=== PATIENT | male | born 1970 | race Caucasian/White ===

== ENCOUNTER 2018-11-28 13:34 | Inpatient (IN) | payer OTHER ==
[~2018-11-28] VITALS: Ht 175.3 cm; Wt 114.9 kg
[2018-11-28] MEDS ORDERED: ACETAMINOPHEN 500 MG TAB PO STA (13:51)
[2018-11-28] MEDS ORDERED: ALBUTEROL/IPRATROPIUM (NEB) 3 ML AMP HHN STA (13:51)
[2018-11-28] MEDS ORDERED: IBUPROFEN 600 MG TAB PO STA (13:51)
--- NOTE | 2018-11-28 14:06 | ERD ---
ER Documentation Chief Complaint Chief Complaint BIB [facility] FOR EVAL OF GENERALIZED BODYACHE, FEVER. HPI This is a 48-year-old male who went to the emergency room yesterday for a rash. He was given a prescription of cimetidine as well as Benadryl. He states he took this just prior to arrival. Shortly after he indicated he became yaron phoretic and had a tactile fever with shaking chills. Over the past several days he has had a nonproductive cough but today it became productive. He denies tobacco use. He had generalized myalgias. He felt nauseous but did not experience any emesis. He denied any abdominal pain. He said no recent travel or prolonged immobilization. No recent sick contacts . The patient indicates he currently lives in a sober living facility. He indicates that he had a history of alcohol abuse. He has not used any alcohol for over 4 months. He denies any hemoptysis hematemesis or melanotic stool ROS All systems reviewed and are negative except as per history of present illness. Medications Home Meds Reported Medications Furosemide* (Furosemide*) 40 Mg Tablet, 40 MG PO DAILY, TAB 11/28/18 Potassium Chloride* (K-Dur*) 10 Meq Tab.prt.sr, 20 MEQ PO DAILY, TAB 11/28/18 Folic Acid* (Folic Acid*) 1 Mg Tablet, 1 MG PO DAILY, TAB 11/28/18 Famotidine* (Famotidine*) 20 Mg Tablet, 20 MG PO BID, #60 TAB 11/28/18 Diphenhydramine Hcl (Banophen) 25 Mg Capsule, 25 MG PO Q4H, CAP 11/28/18 Allergies Allergies: Coded Allergies: Penicillins (Verified Allergy, Intermediate, RASH, 11/28/18) Uncoded Allergies: PENICILLIN (Allergy, Unknown, 11/28/18) Physical Exam Vitals Vital Signs Date Temp Pulse Resp B/P (MAP) Pulse Ox O2 O2 Flow FiO2 Time Delivery Rate 11/28/18 120 32 99/47 (64) 98 Nasal 18:45 Cannula 11/28/18 118 28 91/44 (60) 100 Nasal 18:30 Cannula 11/28/18 99.1 18:22 11/28/18 116 24 97/45 (62) 98 Nasal 18:15 Cannula 11/28/18 118 19 98 Nasal 2.0 18:07 Cannula 11/28/18 2.0 18:07 5/2/19 99.9 119 30 100/44 99 Nasal 2.0 18:00 (62) Cannula 11/28/18 100.1 131 33 93/46 (62) 98 Nasal 2.0 17:45 Cannula 11/28/18 100.2 132 25 106/44 98 Nasal 16:45 (64) Cannula 11/28/18 102.1 123 27 104/55 97 Nasal 15:45 (71) Cannula 11/28/18 39.2 14:46 11/28/18 140 33 116/50 97 Nasal 14:30 (72) Cannula 11/28/18 102.5 133 20 143/65 99 13:49 (91) Physical Exam Constitutional:Well-developed. Well-nourished. HEENT:Normocephalic. Atraumatic.Pupils were equal round reactive to light. Dry mucous membranes.No tonsillar exudates. Neck: No nuchal rigidity. No lymphadenopathy. No posterior cervical spine tenderness or step-offs. Respiratory: Not using accessory muscles of respiration.Lungs were clear to auscultation bilaterally. No rhonchi. No rales. Bilateral wheezing Cardiovascular: Regular rate regular rhythm.No murmurs. No rubs were appreciated.S1, S2 normal. Distal pulses are palpable 2+ bilaterally. GI: Abdomen was soft. Nontender. Non Distended. No pulsatile abdominal masses or bruits. No rebound. No guarding. Bowel sounds were present and normal. Muscle skeletal: Full range of motion of both the upper and lower extremities bilaterally.Normal muscle tone.No assymetrical calf tenderness or swelling. Skin: Skin warm to the touch with no petechia, no purpura. No lesions on the palms or the soles of the feet. No maculopapular rash. Urticaria involving the chest back and upper extremities and no involvement of the face NEURO: Patient was alert, awake, orientated x3.No facial droop. Gait observed and normal with no ataxia.Speech had regular rate and rhythm. No focal neurological deficits. Result Diagram: 11/28/18 1400 11/28/18 1400 Results 24 hrs Laboratory Tests Test 11/28/18 14:00 11/28/18 14:08 11/28/18 17:45 11/28/18 17:55 White Blood Count 10.6 10^3/ul Red Blood Count 3.20 10^6/ul Hemoglobin 9.3 g/dl Hematocrit 29.1 % Mean Corpuscular 90.9 fl Volume Mean Corpuscular 29.1 pg Hemoglobin Mean Corpuscular 32.0 g/dl Hemoglobin Concent Red Cell 16.6 % Distribution Width Platelet Count 204 10^3/UL Mean Platelet 12.0 fl Volume Immature 0.400 % Granulocytes % Neutrophils % 77.7 % Lymphocytes % 7.2 % Monocytes % 4.1 % Eosinophils % 10.1 % Basophils % 0.5 % Nucleated Red Blood 0.0 /100WBC Cells % Immature 0.040 10^3/ul Granulocytes # Neutrophils # 8.3 10^3/ul Lymphocytes # 0.8 10^3/ul Monocytes # 0.4 10^3/ul Eosinophils # 1.1 10^3/ul Basophils # 0.1 10^3/ul Nucleated Red Blood 0.0 10^3/ul Cells # Prothrombin Time 16.6 Sec Prothrombin Time 1.3 Ratio INR International 1.33 Normalized Ratio Activated 37.1 Sec Partial Thromboplas t Time Sodium Level 138 mmol/L Potassium Level 4.7 mmol/L Chloride Level 106 mmol/L Carbon Dioxide 22 mmol/L Level Anion Gap 10 Blood Urea Nitrogen 10 mg/dl Creatinine 0.67 mg/dl Est Glomerular > 60 mL/min Filtrat Rate mL/min Glucose Level 114 mg/dl Calcium Level 8.9 mg/dl Total Bilirubin 1.5 mg/dl Direct Bilirubin 0.00 mg/dl Indirect Bilirubin 1.5 mg/dl Aspartate Amino 68 IU/L Transf (AST/SGOT) Alanine 13 IU/L Aminotransferase (A LT/SGPT) Alkaline 236 IU/L Phosphatase Creatine Kinase 82 IU/L Creatine Kinase 0.3 Index Creatinine Kinase < 0.22 ng/ml MB (Mass) Troponin I < 0.012 ng/ml B-Type Natriuretic 107 PG/ML Peptide Total Protein 7.9 g/dl Albumin 3.4 g/dl Globulin 4.50 g/dl Albumin/Globulin 0.75 Ratio POC Venous Lactate 2.9 mmol/L Lactic Acid Level 2.2 mmol/L Urine Color DICKSON Urine Clarity SLIGHTLY CLOUDY Urine pH 5.0 Urine Specific 1.025 [place] Urine Ketones TRACE mg/dL Urine Nitrite NEGATIVE mg/dL Urine Bilirubin 1+ mg/dL Urine Urobilinogen 1+ mg/dL Urine Leukocyte NEGATIVE Alisa/ul Esterase Urine Microscopic 9 /HPF RBC Urine Microscopic 2 /HPF WBC Urine Mucus FEW /HPF Urine Hemoglobin 2+ mg/dL Urine Glucose NEGATIVE mg/dL Urine Total Protein 1+ mg/dl Current Medications Medications Dose Sig/Carlos Start Time Status Last (Trade) Ordered Route PRN Stop Time Admin Dose Reason Admin 1,000 mg ONCE STAT 11/28/18 DC Acetaminophen PO 13:51 11/28/18 (Tylenol 13:57 Tab) Ibuprofen 800 mg ONCE STAT 11/28/18 DC 11/28/18 (Motrin) PO 13:51 11/28/18 14:46 13:57 Albuterol/ 3 ml ONCE STAT 11/28/18 DC 11/28/18 Ipratropium HHN 13:51 11/28/18 13:51 (Duoneb) 13:57 Sodium 1,920 ml BOLUS OVER 2 11/28/18 DC Chloride HOURS STAT 14:08 11/28/18 (NS) IV* 14:13 Cefepime HCl 50 ml @ ONCE STAT 11/28/18 DC 11/28/18 100 mls/hr IVPB 14:08 11/28/18 14:31 14:37 Vancomycin 250 ml @ ONCE ONCE 11/28/18 DC 11/28/18 HCl 125 mls/hr IVPB 14:30 11/28/18 15:38 16:29 Sodium 3,600 ml BOLUS OVER 2 11/28/18 DC 11/28/18 Chloride HOURS STAT 14:09 11/28/18 14:23 (NS) IV* 14:11 Ondansetron 4 mg ER BRIDGE 11/28/18 HCl (Zofran PRN IV 15:00 11/29/18 Inj) NAUSEA/VOMITI 14:59 NG 650 mg ER BRIDGE 11/28/18 Acetaminophen PRN PO 15:00 11/29/18 (Tylenol .MILD PAIN 14:59 Tab) 1-3 OR TEMP 50 mg ONCE STAT 11/28/18 DC 11/28/18 Diphenhydrami IV 15:03 11/28/18 16:13 ne HCl 15:05 (Benadryl) Epinephrine 0.5 mg ONCE STAT 11/28/18 DC 11/28/18 IM 15:03 11/28/18 16:13 (EPINEPHrine) 15:05 Famotidine 20 mg ONCE STAT 11/28/18 DC 11/28/18 (Pepcid Iv) IV 15:03 11/28/18 16:13 15:05 125 mg ONCE STAT 11/28/18 DC 11/28/18 Methylprednis IV 15:03 11/28/18 18:08 olone Sodium 15:05 Succinate (Solu-Medrol) IV Flush 3 ml PER 11/28/18 (NS 3 ml) PROTOCOL IV 16:30 650 mg Q6H PRN 11/28/18 Acetaminophen MT .PAIN 1-3 16:30 (Tylenol OR TEMP Supp) Oxycodone/ 1 tab Q6H PRN 11/28/18 Acetaminophen PO .MOD PAIN 16:30 (Percocet 4-6 (5/ 325)) Enoxaparin 30 mg DAILY SC 11/29/18 Sodium 09:00 (Lovenox) Ceftriaxone 50 ml @ Q24H IVPB 11/28/18 11/28/18 Sodium 100 mls/hr 17:00 18:15 500 mg ONCE ONCE 11/28/18 DC 11/28/18 Azithromycin PO 17:00 11/28/18 18:15 (Zithromax) 17:01 250 mg DAILY PO 11/29/18 Azithromycin 09:00 (Zithromax) 250 ml @ ONCE STAT 11/28/18 11/28/18 Norepinephrin 7.5 mls/hr IV 19:54 11/30/18 20:03 e 05:13 Procedures/MDM This is a 48-year-old male that presented to the emergency department with signs of an upper respiratory infection. The patient did meet Sirs criteria. The patient's lactic acid was elevated. Therefore the patient was treated for sepsis. Patient's infectious symptoms have not stabilized and the patient is at risk of rapid decompensation. The patient will be admitted for careful hydratio n, antibiotic therapy, and infectious source control. Severe Sepsis Assessment: Infectious Source: Initially the patient was treated for sepsis of unclear etiology. End organ damage indicated by: Lactate > 2.0 mmol/L Severe Sepsis Managment: Blood Cultures X 2 before broad spectrum antibiotics initiated within 3 hours of recognition. 30 ml/kg NS bolus Completed Initial Lactate: 2.9 Repeat Lactate pending. Please note that the 2 hours had not initially been obtained as when I placed the order set I accidentally only ordered for the 4-hour lactic. Therefore I had requested a draw roughly 3 hours after the initial lactic when I went to review the patient's chart and saw that the lactic 2 hours post initial POC had not been obtained. 12 Lead EKG tracing ordered and reviewed by myself showed: Sinus tachycardia 150 the patient's tachycardia and the patients tachycardia im proved after receiving antipyretics and IV fluids bpm and antipyretic MT interval normal. QRS duration normal. No ST segment elevation No ST segment depression. No changes consistent with acute ischemia. I considered further perfusion assessment with CVP measurement, SCVO2, bedside ultrasound volume assessment, passive leg raise, trial of further fluid bolus. And preceded with IV fluids. Chest radiograph indicated that there was a right lower lobe infiltrate that could be the source of the patient's sepsis. The patient also had an urticarial rash. The patient had received IV Benadryl Pepcid and epinephrine with improvement but not complete resolution of the urticarial rash. The patient indicated that rash is what prompted him to go to the emergency department yesterday at another facility when he was given Benadryl. Indicates he is not recently been on antibiotics. He does state that he has a history of cirrhosis and denies any history of alcohol abuse. The case he is awaiting to see a specialist. He states he has no known history of hepatitis but is currently completing hep A vaccinations. Critical Care: Time: 120 minutes Treatments/Evaluations: Close monitoring and treatment of unstable vital signs, cardiorespiratory, and neurologic status, while maintaining tight balance of fluid, respiratory, and cardiac interventions. Time does not include performing any of the above billable procedures. Nursing staff had approached me and indicated patient continued to remain hypotensive. Therefore discussed with the patient at this time the need for central line. The patient provided a written consent for central line placement. The patient was critically ill and required central venous access. The patient consented and after was prepped and draped in a sterile fashion. Time out performed and the left internal jugular vein was cannulated using the Seldinger technique after anesthesia administered with 1% lidocaine locally. A triple lumen catheter used. The guidewire was easily thread into the vessel. The guidewire was retrieved, removed and disposed of. All three ports gonzalo back venous blood and flushed easily. The line was secured in place with 2 simple interrupted sutures and a biostat was applied over the area in inoculation. The patient tolerated the procedure well with no complications. These also note that I initially attempted placement into the left femoral vein. However the guidewire had difficulty passing which is why I then went to the left internal jugular. ED Ultrasound: Central line placed by me using concurrent ultrasound guidance. Real time image archived in the medical record confirms vascular anatomy. The patient will be upgraded to the intensive care unit and the patient was started on pressors. The patient's bilirubin was also elevated however I did not feel the lactic acid was as a result of her cirrhosis but rather a result of sepsis from an infectious process being pneumonia. The patient was febrile with an elevated lactate. Repeat lactic acid had slightly improved to 2.2. Departure Diagnosis: Primary Impression: Sepsis Sepsis type: sepsis due to unspecified organism Qualified Codes: A41.9 - Sepsis, unspecified organism Additional Impressions: Pneumonia Pneumonia type: due to unspecified organism Laterality: right Lung location: lower lobe of lung Qualified Codes: J18.1 - Lobar pneumonia, unspecified organism Urticaria Condition: Serious ARACELI LUNA MD November 28, 2018 14:06
[2018-11-28] MEDS ORDERED: SODIUM CHLORIDE 0.9% 1L BAG IV* STA ×2 (14:08→14:09)
[2018-11-28] MEDS ORDERED: CEFEPIME 2GM/50 ML (PMX) 50 ML IVPB STA (14:08)
[2018-11-28] MEDS ORDERED: VANCOMYCIN 1 GM (PMX) 250 ML IVPB ONE (14:30)
[2018-11-28] MEDS ORDERED: DIPH25CA42 PO (14:46)
[2018-11-28] MEDS ORDERED: FAMO20TA18 PO (14:46)
[2018-11-28] MEDS ORDERED: FOLI-49 PO (14:47)
[2018-11-28] MEDS ORDERED: POTA10TA37 PO (14:49)
[2018-11-28] MEDS ORDERED: FURO40TA4 PO (14:50)
[2018-11-28] MEDS ORDERED: ACETAMINOPHEN 325 MG TAB PO PRN (15:00)
[2018-11-28] MEDS ORDERED: ONDANSETRON 4 MG INJ IV PRN (15:00)
[2018-11-28] MEDS ORDERED: FAMOTIDINE 20 MG INJ IV STA (15:03)
[2018-11-28] MEDS ORDERED: METHYLPREDNISOLONE 125 MG INJ IV STA (15:03)
[2018-11-28] MEDS ORDERED: EPINEPHrine 1 MG INJ IM STA (15:03)
[2018-11-28] MEDS ORDERED: DIPHENHYDRAMINE 50 MG INJ IV STA (15:03)
[2018-11-28] MEDS ORDERED: NACL 0.9% 3 ML SYG IV SCH (16:30)
[2018-11-28] MEDS ORDERED: OXYCODONE/ACETAMINOPHEN (5/325) TAB PO PRN (16:30)
[2018-11-28] MEDS ORDERED: ACETAMINOPHEN 650 MG SUPP PR PRN (16:30)
--- NOTE | 2018-11-28 16:47 | HP ---
Date/Time of Note Date/Time of Note DATE: 11/28/18 TIME: 16:30 Assessment/Plan VTE Prophylaxis SCD applied (from Nsg): Yes Pharmacological prophylaxis: heparin Lines/Catheters IV Catheter Type (from Nrsg): Saline Lock Assessment/Plan Hospital Course EXAM: Appears well No distress Diffuse erythematous rash covering trunk and back, mildly raised, very warm to touch Tachy, regular, flat neck veins Lungs clear Abdomen obese, soft, nt Legs with erythema and mild pitting edema b/l A/P: 48 yo male with h/o alcoholic liver disease who presents with likely drug eruption from lasix as well as fever/SIRS with XR showing possible pneumonia Rash: - Temporally this seems related to use of lasix. Perhpas this is hives. However prescence of fever with eosinophelia raises concern for DRESS syndrome. It is reassuring there is no mucosal involvement - s/p steroids and antihistamines in the ED - Supportive care for now and monitor SIRS with XR showing pneumonia: - Will give ceftriaxone/azithro for CAP Reported h/o alcoholic liver disease: - US of liver, trend LFTs Anemia: - Check iron stores Result Diagram: 11/28/18 1400 11/28/18 1400 Results 24hrs Laboratory Tests Test 11/28/18 14:00 11/28/18 14:08 White Blood Count 10.6 Red Blood Count 3.20 L Hemoglobin 9.3 L Hematocrit 29.1 L Mean Corpuscular Volume 90.9 Mean Corpuscular Hemoglobin 29.1 Mean Corpuscular Hemoglobin Concent 32.0 Red Cell Distribution Width 16.6 H Platelet Count 204 Mean Platelet Volume 12.0 H Immature Granulocytes % 0.400 Neutrophils % 77.7 H Lymphocytes % 7.2 L Monocytes % 4.1 Eosinophils % 10.1 H Basophils % 0.5 Nucleated Red Blood Cells % 0.0 Immature Granulocytes # 0.040 H Neutrophils # 8.3 H Lymphocytes # 0.8 Monocytes # 0.4 Eosinophils # 1.1 H Basophils # 0.1 Nucleated Red Blood Cells # 0.0 Prothrombin Time 16.6 H Prothrombin Time Ratio 1.3 INR International Normalized Ratio 1.33 Activated Partial Thromboplast Time 37.1 H Sodium Level 138 Potassium Level 4.7 Chloride Level 106 Carbon Dioxide Level 22 Anion Gap 10 Blood Urea Nitrogen 10 Creatinine 0.67 Est Glomerular Filtrat Rate mL/min > 60 Glucose Level 114 Calcium Level 8.9 Total Bilirubin 1.5 H Direct Bilirubin 0.00 Indirect Bilirubin 1.5 H Aspartate Amino Transf (AST/SGOT) 68 H Alanine Aminotransferase (ALT/SGPT) 13 Alkaline Phosphatase 236 H Creatine Kinase 82 Creatine Kinase Index 0.3 Creatinine Kinase MB (Mass) < 0.22 Troponin I < 0.012 B-Type Natriuretic Peptide 107 Total Protein 7.9 Albumin 3.4 Globulin 4.50 H Albumin/Globulin Ratio 0.75 POC Venous Lactate 2.9 *H HPI/ROS Admit Date/Time Admit Date/Time Hx of Present Illness 48 yo male with reported h/o alcoholic liver disease presents with rash, fever, malaise States he was diagnosed with liver problem a couple months ago at [facility], consequence of alcohol use. He was given lasix at that time without any adverse reaction. He took it for a few weeks and then had been off of it until refilling the script a couple days ago. Took lasix again and then developed full body skin rash which has persisted. Then today, he was at work and began feeling feverish with systemic malaise. Body shaking. Cough. Came to ED for evaluation. Here found to have diffuse skin rash, fever, and XR consistent with pneumoina. Given fluids, abx, steroids, antihistamines, tylenol. Says he feels "a thousand percent better" ROS Constitutional: no complaints, improved Eyes: no complaints ENT: no complaints Respiratory: no complaints Cardiovascular: no complaints Gastrointestinal: no complaints Genitourinary: no complaints Musculoskeletal: no complaints Skin: no complaints Neurologic: no complaints Endocrine: no complaints Lymphatic: no complaints Psychological: no complaints, nl mood/affect Immunologic: no complaints PMH/Family/Social Past Medical History liver disease Medications Current Medications Ondansetron HCl (Zofran Inj) 4 mg ER BRIDGE PRN IV NAUSEA/VOMITING; Start 11/28/18 at 15:00; Stop 11/29/18 at 14:59 Acetaminophen (Tylenol Tab) 650 mg ER BRIDGE PRN PO .MILD PAIN 1-3 OR TEMP; Start 11/28/18 at 15:00; Stop 11/29/18 at 14:59 Uncoded Allergies: PENICILLIN (Allergy, Unknown, 11/28/18) Past Surgical History Past Surgical Hx: no surgical history Family History Significant Family History: no pertinent family hx Social History Alcohol Use: sober Smoking Status: Never smoker Drug Use: none Exam/Review of Systems Vital Signs Vitals Vital Signs Date Temp Pulse Resp B/P (MAP) Pulse Ox O2 O2 Flow FiO2 Time Delivery Rate 11/28/18 39.2 14:46 11/28/18 133 20 143/65 99 13:49 (91) YELITZA DECKER MD November 28, 2018 16:41
[2018-11-28] MEDS ORDERED: AZITHROMYCIN 500 MG TAB PO ONE (17:00)
[2018-11-28] MEDS: CEFTRIAXONE 1 GM/50 ML (PMX) 50 ML IVPB SCH (18:15)
[2018-11-28] MEDS ORDERED: NORepinephrine 8MG/250 ML (PMX 250 ML IV STA (19:54)
[2018-11-29] VITALS (67 sets, daily range): BP systolic 68–169; BP diastolic 43–94; PULSE 94–123; RESP 10–37; Ht 175.3 cm; Wt 114.9 kg
[2018-11-29] MEDS ORDERED: VANCOMYCIN IV PER PHARMACY XX SCH (03:30)
[2018-11-29] MEDS ORDERED: VANCOMYCIN HCL 1.75 GM in SOD CHLORIDE 0.9% 500 ML IVPB ONE (04:00)
[2018-11-29] MEDS: AZITHROMYCIN 250 MG TAB PO SCH (08:12)
[2018-11-29] MEDS: ENOXAPARIN 30 MG/0.3 ML SYG SC SCH (08:13)
[2018-11-29] MEDS: GUAIFENESIN/DM 5ML CUP PO PRN (09:32)
[2018-11-29] MEDS ORDERED: CLOTRIMAZOLE 1% 30 ML TOPICAL SOLN TOP ONE (10:00)
[2018-11-29] MEDS ORDERED: CLOTRIMAZOLE 1% 30 GM CR TOP ONE (10:00)
--- NOTE | 2018-11-29 12:20 | RADRPT ---
Echocardiogram Report Patient Name: Sudheer SALVADOR ID: [id number] : 1970 (48y 4m)Study Date: 11/29/2018 7:37:11 AM Gender: MAccession #: [id number] Tech: Malinda Graves THERESA Location: 113 Ref.Physician: YELITZA DECKER Height(Cm): BSA: Weight(Kg): Quality: AdequateAccount #: Procedures: Echocardiographic Report: Transthoracic echocardiogram with complete 2D, M-Mode, and doppler examination. Indications: Abnormal EKG. Measurements: 2D/M Mode Doppler Measurement Value Normal Range Measurement Value Normal Range LVIDd 2D 5.8 [ 4.2 - 5.8 ] cm AV Mean Leoncio 1.5 [ 70.0 - 90.0 ] cm/sec LVIDs 2D 3.8 [ 2.5 - 4.0 ] cm AV Mean PG 10.0 [ 2.0 - 4.0 ] mmHg LVPWd 2D 1.0 [ 0.6 - 1.0 ] cm AV VTI 38.1 cm IVSd 2D 1.1 [ 0.6 - 1.0 ] cm LVOT Mean Leoncio 1.1 [ 60.0 - 80.0 ] cm/sec AoR Diam 2D 3.0 [ 2.6 - 3.4 ] cm LVOT Mean PG 5.0 [ 1.0 - 3.0 ] mmHg EDV 2D 170.0 [ 62.0 - 150.0 ] ml LVOT Peak Leoncio 1.5 [ 70.0 - 110.0 ] cm/sec ESV 2D 60.8 [ 21.0 - 61.0 ] ml LVOT Peak PG 8.0 [ 2.0 - 6.0 ] mmHg EF 2D 64.2 [ 52.0 - 72.0 ] percent LVOT VTI 31.1 [ 20.0 - 30.0 ] cm LA Dimen 2D 4.1 [ 3.0 - 4.0 ] cm MV E Peak Leoncio 1.4 [ 60.0 - 130.0 ] cm/sec MV A Peak Leoncio 1.7 [ 100.0 - 120.0 ] cm/sec MV E/A 0.8 [ 0.8 - 1.5 ] ratio MV Decel Time 130 [ 104 - 258 ] msec MV E/A 0.8 [ 0.8 - 1.5 ] ratio TR Peak Leoncio 2.5 [ 100.0 - 280.0 ] cm/sec TR Peak PG 25.0 mmHg RVSP 40.0 [ 10.0 - 36.0 ] mmHg RA Pressure 15.0 mmHg Findings: Left Ventricle: Lower limits of normal systolic function. Mild concentric left ventricular hypertrophy. Mild enlargement of left ventricle cavity. Ejection fraction is visually estimated at 50-55 %. Tissue Doppler/Mitral Doppler indices are consistent with impaired relaxation (Stage I diastolic dysfunction). Right Ventricle: Normal right ventricular size. Normal right ventricular systolic function. Left Atrium: There is mild enlargement of left atrium. Right Atrium: The right atrium is normal in size. Mitral Valve: Mitral valve leaflets appear mildly thickened. Mild mitral annular calcification. Mild mitral valve regurgitation. Aortic Valve: Aortic sclerosis without significant stenosis. Trace aortic valve regurgitation. Tricuspid Valve: Normal appearance of the tricuspid valve. Estimated peak PA systolic pressure 40 mmHg. There is mild tricuspid regurgitation. Pulmonic Valve: Pulmonic valve not well visualized. Pericardium: Normal pericardium with no significant pericardial effusion. Aorta: Normal aortic root. IVC: Dilated IVC without respiratory collapse consistent with elevated right atrial pressure. Conclusions: Lower limits of normal systolic function. Mild concentric left ventricular hypertrophy. Mild enlargement of left ventricle cavity. Ejection fraction is visually estimated at 50-55 %. Tissue Doppler/Mitral Doppler indices are consistent with impaired relaxation (Stage I diastolic dysfunction). Normal right ventricular size. Normal right ventricular systolic function. There is mild enlargement of left atrium. The right atrium is normal in size. Mild mitral valve regurgitation. Aortic sclerosis without significant stenosis. Trace aortic valve regurgitation. Estimated peak PA systolic pressure 40 mmHg. There is mild tricuspid regurgitation. Dilated IVC without respiratory collapse consistent with elevated right atrial pressure. Normal pericardium with no significant pericardial effusion. Electronically Signed By: Toby Swift 2018-11-29 12:20:17 PDT
[2018-11-29] MEDS: CEPASTAT LOZENGE MT PRN (13:36)
--- NOTE | 2018-11-29 14:02 | PN ---
Date/Time of Note Date/Time of Note DATE: 11/29/18 TIME: 13:59 Assessment/Plan VTE Prophylaxis SCD applied (from Nsg): Yes Pharmacological prophylaxis: heparin Lines/Catheters IV Catheter Type (from Nrsg): Mid Line Assessment/Plan Hospital Course EXAM: Appears well No distress Rash is resolving nicely Tachy, regular, flat neck veins Lungs clear Abdomen obese, soft, nt Legs with erythema and mild pitting edema b/l A/P: 48 yo male with h/o alcoholic liver disease who presents with likely drug eruption from lasix as well as fever/SIRS with XR showing possible pneumonia Rash: - Resolving nicely. Likely related to drug exposure prior to presentation - s/p steroids and antihistamines in the ED - Supportive care for now and monitor SIRS with XR showing pneumonia: - Continue ceftriaxone/azithro for CAP. Vancomycin was added overnight - Remains a bit tachycardic and borderline hypotensive. TTE with nomral LV function Reported h/o alcoholic liver disease: - US of liver without ascites, shows fatty infiltration Iron deficiency anemia: - Replete with IV iron - Will need non urgent GI evaluation Result Diagram: 11/29/18 0430 11/29/18 0430 Results 24hrs Laboratory Tests Test 11/28/18 14:00 11/28/18 14:08 11/28/18 17:45 11/28/18 17:55 White Blood Count 10.6 Red Blood Count 3.20 L Hemoglobin 9.3 L Hematocrit 29.1 L Mean Corpuscular 90.9 Volume Mean Corpuscular 29.1 Hemoglobin Mean Corpuscular 32.0 Hemoglobin Concent Red Cell 16.6 H Distribution Width Platelet Count 204 Mean Platelet 12.0 H Volume Immature 0.400 Granulocytes % Neutrophils % 77.7 H Lymphocytes % 7.2 L Monocytes % 4.1 Eosinophils % 10.1 H Basophils % 0.5 Nucleated Red 0.0 Blood Cells % Immature 0.040 H Granulocytes # Neutrophils # 8.3 H Lymphocytes # 0.8 Monocytes # 0.4 Eosinophils # 1.1 H Basophils # 0.1 Nucleated Red 0.0 Blood Cells # Prothrombin Time 16.6 H Prothrombin Time 1.3 Ratio INR International 1.33 Normalized Ratio Activated 37.[address] Time Sodium Level 138 Potassium Level 4.7 Chloride Level 106 Carbon Dioxide 22 Level Anion Gap 10 Blood Urea 10 Nitrogen Creatinine 0.67 Est Glomerular > 60 Filtrat Rate mL/min Glucose Level 114 Calcium Level 8.9 Total Bilirubin 1.5 H Direct Bilirubin 0.00 Indirect Bilirubin 1.5 H Aspartate Amino 68 H Transf (AST/SGOT) Alanine 13 Aminotransferase ( ALT/SGPT) Alkaline 236 H Phosphatase Creatine Kinase 82 Creatine Kinase 0.3 Index Creatinine Kinase < 0.22 MB (Mass) Troponin I < 0.012 B-Type Natriuretic 107 Peptide Total Protein 7.9 Albumin 3.4 Globulin 4.50 H Albumin/Globulin 0.75 Ratio POC Venous Lactate 2.9 *H Lactic Acid Level 2.2 *H Urine Color DICKSON Urine Clarity SLIGHTLY CLOUDY A Urine pH 5.0 Urine Specific 1.025 [place] Urine Ketones TRACE A Urine Nitrite NEGATIVE Urine Bilirubin 1+ H Urine Urobilinogen 1+ H Urine Leukocyte NEGATIVE Esterase Urine Microscopic 9 H RBC Urine Microscopic 2 WBC Urine Mucus FEW A Urine Hemoglobin 2+ H Urine Glucose NEGATIVE Urine Total 1+ H Protein Test 11/28/18 22:15 11/29/18 04:30 11/29/18 04:36 Lactic Acid Level 2.6 *H White Blood Count 12.5 H Red Blood Count 2.64 L Hemoglobin 7.7 L Hematocrit 24.2 L Mean Corpuscular 91.7 Volume Mean Corpuscular 29.2 Hemoglobin Mean Corpuscular 31.8 L Hemoglobin Concent Red Cell 16.6 H Distribution Width Platelet Count 122 #L Mean Platelet 11.3 H Volume Immature 3.400 H Granulocytes % Neutrophils % Segmented 71 Neutrophils % (Manual) Band Neutrophils % 26 H (Manual) Lymphocytes % Lymphocytes % 2 L (Manual) Monocytes % Monocytes % 1 (Manual) Eosinophils % Basophils % Nucleated Red 0.0 Blood Cells % Immature 0.430 H Granulocytes # Neutrophils # Neutrophils # 9.3 H (Manual) Band Neutrophils # 3.2 H Lymphocytes 0.2 L (Manual) Lymphocytes # Monocytes # Monocytes # 0.1 L (Manual) Eosinophils # Basophils # Nucleated Red Blood Cells # Platelet Estimate DECREASED Polychromasia 2+ Hypochromasia 1+ Poikilocytosis 1+ Ovalocytes 1+ Sodium Level 140 Potassium Level 4.1 Chloride Level 112 H Carbon Dioxide 21 Level Anion Gap 7 Blood Urea 13 Nitrogen Creatinine 0.78 Est Glomerular > 60 Filtrat Rate mL/min Glucose Level 227 #H Hemoglobin A1c 5.6 Calcium Level 7.8 L Total Bilirubin 0.9 Direct Bilirubin 0.00 Indirect Bilirubin 0.9 Aspartate Amino 44 Transf (AST/SGOT) Alanine 21 Aminotransferase ( ALT/SGPT) Alkaline 109 # Phosphatase Total Protein 5.8 #L Albumin 2.5 L Globulin 3.30 H Albumin/Globulin 0.75 Ratio Iron Level 14 L Total Iron Binding 369 Capacity Percent Iron 4 L Saturation Ferritin 21.9 Subjective 24 Hr Interval Summary Free Text/Dictation Rash is resolved Patient is feeling better Mild cough present Exam/Review of Systems Exam Vitals Vital Signs Date Temp Pulse Resp B/P (MAP) Pulse Ox O2 O2 Flow FiO2 Time Delivery Rate 11/29/18 119 08:00 11/29/18 24 98/56 (70) 94 Room Air 07:00 11/29/18 98.3 04:00 11/28/18 2.0 18:07 Intake and Output 11/28/18 11/28/18 11/29/18 1515:00 23:00 07:00 IntakeIntake Total 3900 ml 536.25 ml OutputOutput Total 720 ml BalanceBalance 3900 ml -183.75 ml Results Results 24hrs Laboratory Tests Test 11/28/18 14:00 11/28/18 14:08 11/28/18 17:45 11/28/18 17:55 White Blood Count 10.6 Red Blood Count 3.20 L Hemoglobin 9.3 L Hematocrit 29.1 L Mean Corpuscular 90.9 Volume Mean Corpuscular 29.1 Hemoglobin Mean Corpuscular 32.0 Hemoglobin Concent Red Cell 16.6 H Distribution Width Platelet Count 204 Mean Platelet 12.0 H Volume Immature 0.400 Granulocytes % Neutrophils % 77.7 H Lymphocytes % 7.2 L Monocytes % 4.1 Eosinophils % 10.1 H Basophils % 0.5 Nucleated Red 0.0 Blood Cells % Immature 0.040 H Granulocytes # Neutrophils # 8.3 H Lymphocytes # 0.8 Monocytes # 0.4 Eosinophils # 1.1 H Basophils # 0.1 Nucleated Red 0.0 Blood Cells # Prothrombin Time 16.6 H Prothrombin Time 1.3 Ratio INR International 1.33 Normalized Ratio Activated 37.[address] Time Sodium Level 138 Potassium Level 4.7 Chloride Level 106 Carbon Dioxide 22 Level Anion Gap 10 Blood Urea 10 Nitrogen Creatinine 0.67 Est Glomerular > 60 Filtrat Rate mL/min Glucose Level 114 Calcium Level 8.9 Total Bilirubin 1.5 H Direct Bilirubin 0.00 Indirect Bilirubin 1.5 H Aspartate Amino 68 H Transf (AST/SGOT) Alanine 13 Aminotransferase ( ALT/SGPT) Alkaline 236 H Phosphatase Creatine Kinase 82 Creatine Kinase 0.3 Index Creatinine Kinase < 0.22 MB (Mass) Troponin I < 0.012 B-Type Natriuretic 107 Peptide Total Protein 7.9 Albumin 3.4 Globulin 4.50 H Albumin/Globulin 0.75 Ratio POC Venous Lactate 2.9 *H Lactic Acid Level 2.2 *H Urine Color [place] Urine Clarity SLIGHTLY CLOUDY A Urine pH 5.0 Urine Specific 1.025 [place] Urine Ketones TRACE A Urine Nitrite NEGATIVE Urine Bilirubin 1+ H Urine Urobilinogen 1+ H Urine Leukocyte NEGATIVE Esterase Urine Microscopic 9 H RBC Urine Microscopic 2 WBC Urine Mucus FEW A Urine Hemoglobin 2+ H Urine Glucose NEGATIVE Urine Total 1+ H Protein Test 11/28/18 22:15 11/29/18 04:30 11/29/18 04:36 Lactic Acid Level 2.6 *H White Blood Count 12.5 H Red Blood Count 2.64 L Hemoglobin 7.7 L Hematocrit 24.2 L Mean Corpuscular 91.7 Volume Mean Corpuscular 29.2 Hemoglobin Mean Corpuscular 31.8 L Hemoglobin Concent Red Cell 16.6 H Distribution Width Platelet Count 122 #L Mean Platelet 11.3 H Volume Immature 3.400 H Granulocytes % Neutrophils % Segmented 71 Neutrophils % (Manual) Band Neutrophils % 26 H (Manual) Lymphocytes % Lymphocytes % 2 L (Manual) Monocytes % Monocytes % 1 (Manual) Eosinophils % Basophils % Nucleated Red 0.0 Blood Cells % Immature 0.430 H Granulocytes # Neutrophils # Neutrophils # 9.3 H (Manual) Band Neutrophils # 3.2 H Lymphocytes 0.2 L (Manual) Lymphocytes # Monocytes # Monocytes # 0.1 L (Manual) Eosinophils # Basophils # Nucleated Red Blood Cells # Platelet Estimate DECREASED Polychromasia 2+ Hypochromasia 1+ Poikilocytosis 1+ Ovalocytes 1+ Sodium Level 140 Potassium Level 4.1 Chloride Level 112 H Carbon Dioxide 21 Level Anion Gap 7 Blood Urea 13 Nitrogen Creatinine 0.78 Est Glomerular > 60 Filtrat Rate mL/min Glucose Level 227 #H Hemoglobin A1c 5.6 Calcium Level 7.8 L Total Bilirubin 0.9 Direct Bilirubin 0.00 Indirect Bilirubin 0.9 Aspartate Amino 44 Transf (AST/SGOT) Alanine 21 Aminotransferase ( ALT/SGPT) Alkaline 109 # Phosphatase Total Protein 5.8 #L Albumin 2.5 L Globulin 3.30 H Albumin/Globulin 0.75 Ratio Iron Level 14 L Total Iron Binding 369 Capacity Percent Iron 4 L Saturation Ferritin 21.9 Medications Medication Current Medications Ondansetron HCl (Zofran Inj) 4 mg ER BRIDGE PRN IV NAUSEA/VOMITING; Start 11/28/18 at 15:00; Stop 11/29/18 at 14:59 Acetaminophen (Tylenol Tab) 650 mg ER BRIDGE PRN PO .MILD PAIN 1-3 OR TEMP; Start 11/28/18 at 15:00; Stop 11/29/18 at 14:59 IV Flush (NS 3 ml) 3 ml PER PROTOCOL IV ; Start 11/28/18 at 16:30 Acetaminophen (Tylenol Supp) 650 mg Q6H PRN [place] .PAIN 1-3 OR TEMP; Start 11/28/18 at 16:30 Oxycodone/ Acetaminophen (Percocet (5/ 325)) 1 tab Q6H PRN PO .MOD PAIN 4-6; Start 11/28/18 at 16:30 Enoxaparin Sodium (Lovenox) 30 mg DAILY SC Last administered on 11/29/18at 08:13; Admin Dose 30 MG; Start 11/29/18 at 09:00 Ceftriaxone Sodium 50 ml @ 100 mls/hr Q24H IVPB Last administered on 11/28/18at 18:15; Admin Dose 100 MLS/HR; Start 11/28/18 at 17:00 Azithromycin (Zithromax) 250 mg DAILY PO Last administered on 11/29/18at 08:12; Admin Dose 250 MG; Start 11/29/18 at 09:00 Norepinephrine 250 ml @ 7.5 mls/hr ONCE STAT IV Last administered on 11/28/18at 20:03; Admin Dose 7.5 MLS/HR; Start 11/28/18 at 19:54; Stop 11/30/18 at 05:13 Vancomycin HCl (Vanco Iv Per Pharmacy) VANCOMYCIN PER PHARMACY PER PROTOCOL XX ; Start 11/29/18 at 03:30 Vancomycin HCl 2 gm/Sodium Chloride 500 ml @ 125 mls/hr Q12H IVPB ; Start 11/29/18 at 17:00 Guaifenesin/ Dextromethorphan (Robitussin Dm Liquid Cup) 5 ml Q4H PRN PO cough Last administered on 11/29/18at 09:32; Admin Dose 5 ML; Start 11/29/18 at 09:30 Phenol (Cepastat Lozenge) 1 lozenge Q1H PRN [place] cough Last administered on 11/29/18at 13:36; Admin Dose 1 LOZENGE; Start 11/29/18 at 09:30 Ferric Sodium Gluconate Complex 125 mg/Sodium Chloride 110 ml @ 110 mls/hr DAILY@1300 IVPB ; Start 11/29/18 at 15:30; Stop 12/03/18 at 13:59 YELITZA DECKER MD November 29, 2018 14:02
[2018-11-29] MEDS: SOD FERRIC GLUC COMPLX 125 MG in SOD CHLORIDE 0.9% 100 ML IVPB SCH (15:10)
[2018-11-29] MEDS: VANCOMYCIN HCL 2 GM in SOD CHLORIDE 0.9% 500 ML IVPB SCH (17:02)
[2018-11-29] MEDS: CEFTRIAXONE 1 GM/50 ML (PMX) 50 ML IVPB SCH (17:02)
[2018-11-30] VITALS (27 sets, daily range): BP systolic 97–138; BP diastolic 43–90; PULSE 96–121; RESP 18–35
[2018-11-30] MEDS: CEPASTAT LOZENGE MT PRN (00:37)
[2018-11-30] MEDS: GUAIFENESIN/DM 5ML CUP PO PRN ×4 (00:37→19:37)
[2018-11-30] MEDS: DIPHENHYDRAMINE 25 MG CAP PO PRN (01:13)
[2018-11-30] MEDS: VANCOMYCIN HCL 2 GM in SOD CHLORIDE 0.9% 500 ML IVPB SCH ×2 (04:29→18:43)
[2018-11-30] MEDS: AZITHROMYCIN 250 MG TAB PO SCH (08:12)
[2018-11-30] MEDS: ENOXAPARIN 30 MG/0.3 ML SYG SC SCH (09:07)
[2018-11-30] MEDS: SOD FERRIC GLUC COMPLX 125 MG in SOD CHLORIDE 0.9% 100 ML IVPB SCH (12:57)
[2018-11-30] MEDS: IBUPROFEN 600 MG TAB PO PRN (14:37)
--- NOTE | 2018-11-30 14:54 | PN ---
Date/Time of Note Date/Time of Note DATE: 11/30/18 TIME: 14:52 Assessment/Plan VTE Prophylaxis Risk score (from Ns)>0 risk: 5 SCD applied (from Nsg): Yes Pharmacological prophylaxis: heparin Lines/Catheters IV Catheter Type (from Nrsg): Central Line Central line still needed: Yes Urinary Cath still in place: No Assessment/Plan Hospital Course EXAM: Appears well No distress Rash is resolved Tachy, regular, flat neck veins Lungs clear Abdomen obese, soft, nt Legs with erythema and mild pitting edema b/l A/P: 48 yo male with h/o alcoholic liver disease who presents with likely drug eruption from lasix as well as probably sepsis with XR showing pneumonia Sepsis 2/2 pneumonia and GPC bacteremia - Continue ceftriaxone/azithro for CAP. Vancomycin for bacteremia with GPCs, await speciation - No evidence of vegetation on TTE Rash: - Resolved nicely. Likely related to drug exposure prior to presentation. Eosinphilia has resolved so DRESS unlikely - s/p steroids and antihistamines in the ED - Supportive care for now and monitor Reported h/o alcoholic liver disease: - US of liver without ascites, shows fatty infiltration Iron deficiency anemia: - Replete with IV iron - Will need non urgent GI evaluation Result Diagram: 11/30/18 0423 11/30/18 0423 Results 24hrs Laboratory Tests Test 11/30/18 04:23 White Blood Count 11.1 H Red Blood Count 2.44 L Hemoglobin 7.2 L Hematocrit 22.3 L Mean Corpuscular Volume 91.4 Mean Corpuscular Hemoglobin 29.5 Mean Corpuscular Hemoglobin Concent 32.3 Red Cell Distribution Width 16.6 H Platelet Count 115 L Mean Platelet Volume 11.7 H Immature Granulocytes % 1.900 H Neutrophils % 83.0 H Lymphocytes % 11.2 L Monocytes % 3.6 Eosinophils % 0.2 Basophils % 0.1 Nucleated Red Blood Cells % 0.0 Immature Granulocytes # 0.210 H Neutrophils # 9.2 H Lymphocytes # 1.2 Monocytes # 0.4 Eosinophils # 0.0 Basophils # 0.0 Nucleated Red Blood Cells # 0.0 Sodium Level 140 Potassium Level 4.3 Chloride Level 111 H Carbon Dioxide Level 24 Anion Gap 5 Blood Urea Nitrogen 17 Creatinine 0.78 Est Glomerular Filtrat Rate mL/min > 60 Glucose Level 129 # Lactic Acid Level 1.2 Calcium Level 8.5 Subjective 24 Hr Interval Summary Free Text/Dictation Appeared very well, comfortable this AM Unfortunately fever recurred Having a productive cough Exam/Review of Systems Exam Vitals Vital Signs Date Temp Pulse Resp B/P (MAP) Pulse Ox O2 O2 Flow FiO2 Time Delivery Rate 11/30/18 102.0 14:37 11/30/18 113 26 131/82 97 Room Air 13:00 (98) 11/28/18 2.0 18:07 Intake and Output 11/29/18 11/29/18 11/30/18 1515:00 23:00 07:00 IntakeIntake Total 1140 ml 1060 ml 513 ml OutputOutput Total 300 ml 270 ml 1670 ml BalanceBalance 840 ml 790 ml -1157 ml Results Results 24hrs Laboratory Tests Test 11/30/18 04:23 White Blood Count 11.1 H Red Blood Count 2.44 L Hemoglobin 7.2 L Hematocrit 22.3 L Mean Corpuscular Volume 91.4 Mean Corpuscular Hemoglobin 29.5 Mean Corpuscular Hemoglobin Concent 32.3 Red Cell Distribution Width 16.6 H Platelet Count 115 L Mean Platelet Volume 11.7 H Immature Granulocytes % 1.900 H Neutrophils % 83.0 H Lymphocytes % 11.2 L Monocytes % 3.6 Eosinophils % 0.2 Basophils % 0.1 Nucleated Red Blood Cells % 0.0 Immature Granulocytes # 0.210 H Neutrophils # 9.2 H Lymphocytes # 1.2 Monocytes # 0.4 Eosinophils # 0.0 Basophils # 0.0 Nucleated Red Blood Cells # 0.0 Sodium Level 140 Potassium Level 4.3 Chloride Level 111 H Carbon Dioxide Level 24 Anion Gap 5 Blood Urea Nitrogen 17 Creatinine 0.78 Est Glomerular Filtrat Rate mL/min > 60 Glucose Level 129 # Lactic Acid Level 1.2 Calcium Level 8.5 Medications Medication Current Medications IV Flush (NS 3 ml) 3 ml PER PROTOCOL IV ; Start 11/28/18 at 16:30 Acetaminophen (Tylenol Supp) 650 mg Q6H PRN [place] .PAIN 1-3 OR TEMP; Start 11/28/18 at 16:30 Oxycodone/ Acetaminophen (Percocet (5/ 325)) 1 tab Q6H PRN PO .MOD PAIN 4-6; Start 11/28/18 at 16:30 Enoxaparin Sodium (Lovenox) 30 mg DAILY SC Last administered on 11/30/18 09:07; Admin Dose 30 MG; Start 11/29/18 at 09:00 Ceftriaxone Sodium 50 ml @ 100 mls/hr Q24H IVPB Last administered on 11/29/18 17:02; Admin Dose 100 MLS/HR; Start 11/28/18 at 17:00 Azithromycin (Zithromax) 250 mg DAILY PO Last administered on 11/30/18 08:12; Admin Dose 250 MG; Start 11/29/18 at 09:00 Vancomycin HCl (Vanco Iv Per Pharmacy) VANCOMYCIN PER PHARMACY PER PROTOCOL XX ; Start 11/29/18 at 03:30 Vancomycin HCl 2 gm/Sodium Chloride 500 ml @ 125 mls/hr Q12H IVPB Last admin istered on 11/30/18 04:29; Admin Dose 125 MLS/HR; Start 11/29/18 at 17:00 Guaifenesin/ Dextromethorphan (Robitussin Dm Liquid Cup) 5 ml Q4H PRN PO cough Last administered on 11/30/18 13:53; Admin Dose 5 ML; Start 11/29/18 at 09:30 Phenol (Cepastat Lozenge) 1 lozenge Q1H PRN [place] cough Last administered on 11/30/18 00:37; Admin Dose 1 LOZENGE; Start 11/29/18 at 09:30 Ferric Sodium Gluconate Complex 125 mg/Sodium Chloride 110 ml @ 110 mls/hr DAILY@1300 IVPB Last administered on 11/30/18 12:57; Admin Dose 110 MLS/HR; Start 11/29/18 at 15:30; Stop 12/03/18 at 13:59 Miscellaneous Information (*Rx Drug Level Order Reminder*) VANCO TR LEVEL PRIOR... 1600 ONCE XX ; Start 11/30/18 at 16:00; Stop 11/30/18 at 16:01 Diphenhydramine HCl (Benadryl) 25 mg Q6H PRN PO ITCHING Last administered on 11/30/18 01:13; Admin Dose 25 MG; Start 11/30/18 at 00:30 Ibuprofen (Motrin) 600 mg Q6H PRN PO PAIN OR ELEVATED TEMP Last administered on 11/30/18 14:37; Admin Dose 600 MG; Start 11/30/18 at 14:30 YELITZA DECKER MD November 30, 2018 14:54
[2018-11-30] MEDS: CEFTRIAXONE 1 GM/50 ML (PMX) 50 ML IVPB SCH (17:53)
[2018-12-01] MEDS: GUAIFENESIN/DM 5ML CUP PO PRN ×4 (02:33→18:17)
[2018-12-01] MEDS: IBUPROFEN 600 MG TAB PO PRN ×2 (02:36→20:24)
[2018-12-01 02:37] VITALS: BP 153/70; PULSE 125; RESP 18
[2018-12-01] MEDS: VANCOMYCIN HCL 2 GM in SOD CHLORIDE 0.9% 500 ML IVPB SCH (04:29)
[2018-12-01 08:11] VITALS: BP 112/72; PULSE 96; RESP 18
[2018-12-01] MEDS: AZITHROMYCIN 250 MG TAB PO SCH (08:38)
[2018-12-01] MEDS: ENOXAPARIN 30 MG/0.3 ML SYG SC SCH (08:44)
[2018-12-01] MEDS: SOD FERRIC GLUC COMPLX 125 MG in SOD CHLORIDE 0.9% 100 ML IVPB SCH (12:48)
[2018-12-01 14:39] VITALS: BP 129/81; PULSE 95; RESP 18
--- NOTE | 2018-12-01 14:59 | PN ---
Date/Time of Note Date/Time of Note DATE: 12/01/18 TIME: 14:57 Assessment/Plan VTE Prophylaxis Risk score (from Ns)>0 risk: 5 SCD applied (from Nsg): Yes Pharmacological prophylaxis: heparin Lines/Catheters IV Catheter Type (from Nrsg): Central Line Central line still needed: No Urinary Cath still in place: No Assessment/Plan Hospital Course EXAM: Appears well No distress Rash is resolved Tachy, regular, flat neck veins Lungs clear Abdomen obese, soft, nt Legs with erythema and mild pitting edema b/l A/P: 48 yo male with h/o alcoholic liver disease who presents with likely drug eruption from lasix as well as probably sepsis with XR showing pneumonia Sepsis 2/2 pneumonia and Group C strep bacteremia - Continue ceftriaxone for now. Final ID recommendations per ID consult which is pending - No evidence of vegetation on TTE Rash: - Resolved nicely. Likely related to drug exposure prior to presentation. Eosinphilia has resolved so DRESS unlikely - s/p steroids and antihistamines in the ED - Supportive care for now and monitor Reported h/o alcoholic liver disease: - US of liver without ascites, shows fatty infiltration Iron deficiency anemia: - Replete with IV iron - Will need non urgent GI evaluation. Told to make appointment with GI after discharge DC plan: Can likely be discharged tomorrow if repeat blood cultures are negative and antibiotics plan is in place per ID Result Diagram: 11/30/18 0423 11/30/18 0423 Results 24hrs Laboratory Tests Test 11/30/18 16:22 Vancomycin Level Trough 12.5 Subjective 24 Hr Interval Summary Free Text/Dictation Feels well Tmax 100.0 BC growing group C strep Exam/Review of Systems Exam Vitals Vital Signs Date Temp Pulse Resp B/P (MAP) Pulse Ox O2 O2 Flow FiO2 Time Delivery Rate 12/01/18 98.6 95 18 129/81 93 Room Air 14:39 (97) 11/28/18 2.0 18:07 Intake and Output 11/30/18 11/30/18 12/01/18 1515:00 23:00 07:00 IntakeIntake Total 450 ml 1730 ml 735 ml OutputOutput Total 1275 ml 2250 ml BalanceBalance -825 ml 1730 ml -1515 ml Results Results 24hrs Laboratory Tests Test 11/30/18 16:22 Vancomycin Level Trough 12.5 Medications Medication Current Medications IV Flush (NS 3 ml) 3 ml PER PROTOCOL IV ; Start 11/28/18 at 16:30 Acetaminophen (Tylenol Supp) 650 mg Q6H PRN [place] .PAIN 1-3 OR TEMP; Start 11/28/18 at 16:30 Oxycodone/ Acetaminophen (Percocet (5/ 325)) 1 tab Q6H PRN PO .MOD PAIN 4-6; Start 11/28/18 at 16:30 Enoxaparin Sodium (Lovenox) 30 mg DAILY SC Last administered on 12/01/18 08:44; Admin Dose 30 MG; Start 11/29/18 at 09:00 Ceftriaxone Sodium 50 ml @ 100 mls/hr Q24H IVPB Last administered on 11/30/18 17:53; Admin Dose 100 MLS/HR; Start 11/28/18 at 17:00 Guaifenesin/ Dextromethorphan (Robitussin Dm Liquid Cup) 5 ml Q4H PRN PO cough Last administered on 12/01/18 12:53; Admin Dose 5 ML; Start 11/29/18 at 09:30 Phenol (Cepastat Lozenge) 1 lozenge Q1H PRN [place] cough Last administered on 11/30/18 00:37; Admin Dose 1 LOZENGE; Start 11/29/18 at 09:30 Ferric Sodium Gluconate Complex 125 mg/Sodium Chloride 110 ml @ 110 mls/hr DAILY@1300 IVPB Last administered on 12/01/18 12:48; Admin Dose 110 MLS/HR; Start 11/29/18 at 15:30; Stop 12/03/18 at 13:59 Diphenhydramine HCl (Benadryl) 25 mg Q6H PRN PO ITCHING Last administered on 11/30/18 01:13; Admin Dose 25 MG; Start 11/30/18 at 00:30 Ibuprofen (Motrin) 600 mg Q6H PRN PO PAIN OR ELEVATED TEMP Last administered on 12/01/18 02:36; Admin Dose 600 MG; Start 11/30/18 at 14:30 YELITZA DECKER MD December 01, 2018 14:59
--- NOTE | 2018-12-01 17:02 | CONS ---
DATE OF ADMISSION: 11/28/2018 DATE OF CONSULTATION: 12/01/2018 TYPE OF CONSULTATION: Infectious disease. REASON FOR CONSULTATION: Antibiotic management. HISTORY OF PRESENT ILLNESS: Jose Serna is a 48-year-old male, who is admitted for generalized ann-marie dy aches and fever. His past problems include a history of alcohol abuse, but has not had alcohol in 4 months. He came to the emergency room on the day prior to admission for rash and was given some c imetidine as well as Benadryl. He took this prior to arrival. He then became diaphoretic and had a tactile fever and shaking chills. Over the next several days, he had a nonproductive cough, but toda y it became productive. Denies tobacco use. He has generalized myalgias. He felt nauseous, but did not experience any emesis. He has had no recent travel. No recent sick contacts. PAST MEDICAL HISTORY: No operations. FAMILY HISTORY: Noncontributory. SOCIAL HISTORY: He does not smoke, drink or abuse drugs. ALLERGIES: PENICILLIN. MEDICATIONS: Per chart. REVIEW OF SYSTEMS: Noncontributory. PHYSICAL EXAMINATION: GENERAL: The patient is well-developed, well-nourished male, who is awake, responsive, in no acute d istress. VITAL SIGNS: Stable. He is afebrile. SKIN: Without generalized rash. HEENT: Within normal limits. NECK: Supple. LYMPH NODES: None palpable. CHEST: Decreased breath sounds at the bases. HEART: Without murmur or gallop. ABDOMEN: Soft, nontender, without organosplenomegaly or masses. EXTREMITIES: Without cyanosis, clubbing, or edema. RECTAL AND GENITAL: Deferred. NEUROLOGIC: No focal neurological abnormality. SKIN: With regard to the skin, it is warm to the touch. No lesions on the palms or soles. He has u rticaria involving the chest, back and upper extremities with no involvement of the face. ANCILLARY LABORATORY DATA: On admission on November 28, his white count was 10.6, H and H of 9.3 and 29. 1, platelet count 204,000. BUN and creatinine 10/0.67. Random glucose of 114. He had 78% neutrophi ls. BUN and creatinine as noted 10 and 0.67. IMPRESSION AND PLAN: The patient was started on vancomycin and cefepime, also on methylprednisolone 125 mg stat dose. The patient presented with signs of an upper respiratory tract infection SIR S criteria. His lactic acid was 2.9, which is elevated. He has an urticarial rash, was started on B enadryl and Pepcid and epinephrine with some improvement, but not complete resolution of the urticari a. He has a history of cirrhosis, but denies recent alcohol abuse. HOSPITAL COURSE: rash seemed to be related to the use of Lasix. He had eosinophilia. He has no mucosal involvement, status post steroids and antihistamines. On the , his rash was resolving nicely. However, blood cultures from the are growing group C strep, so the patient was bacteremi c. On November 30, his blood cultures so far have been negative. Chest x-ray shows new left central erin ous catheter within the SVC, stable mild right lower lobe consolidation. Right lower lobe infiltrate , elevation of the right hemidiaphragm. Currently, the patient appears well. The rash is resolved. He has tachycardia. His lungs are clear with decreased breath sounds at the bases. Patient is sept ic secondary to pneumonia and group C strep. Continue ceftriaxone for now. I would continue him and treat him for 10 days to 2 weeks for bacteremia. A 2D echocardiogram would be in order. The source of his bacteremia is almost assuredly is a right lower lobe consolidation and the fact that he has p oor filter is reticuloendothelial system secondary to cirrhosis. I will dictate my findings to the h ospitalist. Dictated By: LUZ MARIA LIN MD, JD/MEENAKSHI Conf#: [id number] DID#: [id number] CC: YELITZA DECKER MD;*EndCC*
[2018-12-01] MEDS: CEFTRIAXONE 1 GM/50 ML (PMX) 50 ML IVPB SCH (18:13)
[2018-12-01 19:43] VITALS: BP 130/65; PULSE 99; RESP 18
[2018-12-01] MEDS: CEPASTAT LOZENGE MT PRN (20:24)
[2018-12-02 01:47] VITALS: BP 130/72; PULSE 85; RESP 20
[2018-12-02] MEDS: CEPASTAT LOZENGE MT PRN (06:28)
[2018-12-02 07:55] VITALS: BP 128/66; PULSE 83; RESP 20
[2018-12-02] MEDS: ENOXAPARIN 30 MG/0.3 ML SYG SC SCH (08:27)
[2018-12-02 10:40] VITALS: BP 126/69; PULSE 121; RESP 18
[2018-12-02 11:25] VITALS: PULSE 108
[2018-12-02] MEDS ORDERED: ONDANSETRON 4 MG INJ IV PRN (11:30)
--- NOTE | 2018-12-02 13:07 | CONS ---
Assessment/Plan Assessment/Plan Hospital Course (Demo Recall) No acute changes overnight patient is sleeping arousable in no distress still with low-grade fevers currently afebrile. No labs today Microbiology: Blood cultures on admission grew Streptococcus group C, repeat blood cultures negative urine culture was negative Chest x-ray on admission revealed right lower lobe infiltrate Antimicrobials: Rocephin Physical examination: Obese well-developed middle-aged man who is in no distress. Head atraumatic normocephalic neck is supple. Chest rise symmetrical. Breath sounds diminished bases. Heart: S1-S2. Abdomen soft bowel sounds present. Assessment: 1. Strep bacteremia likely secondary to #2 2. Pneumonia 3. Anemia and thrombocytopenia Plan: Patient remains stable he is on appropriate antibiotics, still with low- grade fevers, will repeat chest x-ray today Consultation Date/Type/Reason Admit Date/Time November 28, 2018 at 14:39 Initial Consult Date Type of Consult id Date/Time of Note DATE: 12/02/18 TIME: 13:07 Exam/Review of Systems Exam Vitals Vital Signs Date Temp Pulse Resp B/P (MAP) Pulse Ox O2 O2 Flow FiO2 Time Delivery Rate 12/02/18 97.9 108 11:25 12/02/18 18 126/69 96 Room Air 10:40 (88) 11/28/18 2.0 18:07 Intake and Output 12/01/18 12/01/18 12/02/18 1515:00 23:00 07:00 IntakeIntake Total 1385 ml 890 ml 820 ml OutputOutput Total 1500 ml 1150 ml 700 ml BalanceBalance -115 ml -260 ml 120 ml Results Result Diagram: 11/30/18 0423 11/30/18 0423 Medications Medication Current Medications IV Flush (NS 3 ml) 3 ml PER PROTOCOL IV ; Start 11/28/18 at 16:30 Acetaminophen (Tylenol Supp) 650 mg Q6H PRN [place] .PAIN 1-3 OR TEMP; Start 11/28/18 at 16:30 Oxycodone/ Acetaminophen (Percocet (5/ 325)) 1 tab Q6H PRN PO .MOD PAIN 4-6; Start 11/28/18 at 16:30 Ceftriaxone Sodium 50 ml @ 100 mls/hr Q24H IVPB Last administered on 12/01/18at 18:13; Admin Dose 100 MLS/HR; Start 11/28/18 at 17:00 Guaifenesin/ Dextromethorphan (Robitussin Dm Liquid Cup) 5 ml Q4H PRN PO cough Last administered on 12/01/18 18:17; Admin Dose 5 ML; Start 11/29/18 at 09:30 Phenol (Cepastat Lozenge) 1 lozenge Q1H PRN MT cough Last administered on 12/02/18 06:28; Admin Dose 1 LOZENGE; Start 11/29/18 at 09:30 Ferric Sodium Gluconate Complex 125 mg/Sodium Chloride 110 ml @ 110 mls/hr DAILY@1300 IVPB Last administered on 12/01/18 12:48; Admin Dose 110 MLS/HR; Start 11/29/18 at 15:30; Stop 12/03/18 at 13:59 Diphenhydramine HCl (Benadryl) 25 mg Q6H PRN PO ITCHING Last administered on 11/30/18 01:13; Admin Dose 25 MG; Start 11/30/18 at 00:30 Ondansetron HCl (Zofran Inj) 4 mg Q6H PRN IV NAUSEA AND/OR VOMITING Last administered on 12/02/18 11:18; Admin Dose 4 MG; Start 12/02/18 at 11:30 ANGELA CUELLO NP December 02, 2018 13:07
[2018-12-02] MEDS: SOD FERRIC GLUC COMPLX 125 MG in SOD CHLORIDE 0.9% 100 ML IVPB SCH (13:17)
[2018-12-02 13:27] VITALS: BP 120/59; PULSE 111; RESP 20
--- NOTE | 2018-12-02 14:37 | PN ---
Date/Time of Note Date/Time of Note DATE: 12/02/18 TIME: 14:29 Assessment/Plan VTE Prophylaxis Risk score (from Ns)>0 risk: 4 SCD applied (from Ns): Yes Pharmacological prophylaxis: NA/contraindicated Pharm contraindication: bleeding Lines/Catheters IV C[facility]from [facility] Mid Line Urinary Cath still in place: No Assessment/Plan Hospital Course 48 yo male with h/o alcoholic liver disease who presents with likely drug eruption from lasix as well as pneumonia Sepsis 2/2 pneumonia and Group C strep bacteremia - Continue ceftriaxone - No evidence of vegetation on TTE -Repeat cultures are negative Rash: - Resolved nicely. Likely related to drug exposure prior to presentation. Eosinophilia has resolved so DRESS unlikely - s/p steroids and antihistamines in the ED - Supportive care for now and monitor Upper GI bleed -Patient did have one episode of GI bleed this morning, patient does have a history of upper GI bleed in the past, EGD at outside facility was reportedly negative for varices but patient is unclear if ulcers were noted -PPI twice daily -GI consultation obtained Reported h/o alcoholic liver disease: - US of liver without ascites, shows fatty infiltration -Patient has quit alcohol Iron deficiency anemia secondary to history of alcohol abuse and poor nutrition - Replete with IV iron DC plan: Follow-up on GI recommendations Result Diagram: 11/30/18 0423 11/30/18 0423 Subjective 24 Hr Interval Summary Gastrointestinal: blood Exam/Review of Systems Exam Vitals Vital Signs Date Temp Pulse Resp B/P (MAP) Pulse Ox O2 O2 Flow FiO2 Time Delivery Rate 12/02/18 98.5 111 20 120/59 94 13:27 (79) 12/02/18 Room Air 10:40 11/28/18 2.0 18:07 Intake and Output 12/01/18 12/01/18 12/02/18 1515:00 23:00 07:00 IntakeIntake Total 1385 ml 890 ml 820 ml OutputOutput Total 1500 ml 1150 ml 700 ml BalanceBalance -115 ml -260 ml 120 ml Constitutional: alert, oriented Respiratory: clear to auscultation Cardiovascular: regular rate and rhythm Gastrointestinal: soft; No distended Musculoskeletal: nl extremities to inspection Medications Medication Current Medications IV Flush (NS 3 ml) 3 ml PER PROTOCOL IV ; Start 11/28/18 at 16:30 Acetaminophen (Tylenol Supp) [address] .PAIN 1-3 OR TEMP; Start 11/28/18 at 16:30 Oxycodone/ Acetaminophen (Percocet (5/ 325)) 1 tab Q6H PRN PO .MOD PAIN 4-6; Start 11/28/18 at 16:30 Ceftriaxone Sodium 50 ml @ 100 mls/hr Q24H IVPB Last administered on 12/01/18 18:13; Admin Dose 100 MLS/HR; Start 11/28/18 at 17:00 Guaifenesin/ Dextromethorphan (Robitussin Dm Liquid Cup) 5 ml Q4H PRN PO cough Last administered on 12/01/18 18:17; Admin Dose 5 ML; Start 11/29/18 at 09:30 Phenol (Cepastat Lozenge) 1 lozenge Q1H PRN MT cough Last administered on 12/02/18 06:28; Admin Dose 1 LOZENGE; Start 11/29/18 at 09:30 Ferric Sodium Gluconate Complex 125 mg/Sodium Chloride 110 ml @ 110 mls/hr DAILY@1300 IVPB Last administered on 12/02/18 13:17; Admin Dose 110 MLS/HR; Start 11/29/18 at 15:30; Stop 12/03/18 at 13:59 Diphenhydramine HCl (Benadryl) 25 mg Q6H PRN PO ITCHING Last administered on 11/30/18 01:13; Admin Dose 25 MG; Start 11/30/18 at 00:30 Ondansetron HCl (Zofran Inj) 4 mg Q6H PRN IV NAUSEA AND/OR VOMITING Last administered on 12/02/18 11:18; Admin Dose 4 MG; Start 12/02/18 at 11:30 CHRISTIAN GUAJARDO December 02, 2018 14:37
--- NOTE | 2018-12-02 15:34 | CONS ---
Assessment/Plan Assessment/Plan Hospital Course (Demo Recall) Summary Assessment and Plan: Assessment: Hematemesis DEBBIE Query hx of Hepatic steatosis -Quit drinking alcohol 2 months ago Bacteremia-Streptococcus group C -Repeat blood cultures negative Pneumonia- being followed by ID Rash- resolved- thought 08/31 to [facility] Reported h/o alcoholic liver disease Plan: CBC- in am Transfuse 2 units PRBCs EGD tomorrow afternoon NPO after 12/03/18 1000 Endoscopy - risks/benefits/alternatives/indications of procedure and sedation/anesthesia discussed with patient who states understanding and gives informed consent to proceed. Monitor h/h- transfuse for Hgb less than 7.5 Will check hepatitis panel Patient seen in collaboration with Errol Diehl CC: MICHEL DIEHL MD ; Consultation Date/Type/Reason Admit Date/Time November 28, 2018 at 14:39 Date of Consultation: December 02, 2018 Type of Consult GI Reason for Consultation Hematemesis Date/Time of Note DATE: 12/02/18 TIME: 15:01 Hx of Present Illness This a 48-year-old male past medical history of alcohol abuse last drink was 2 months ago who presented to the hospital with complaints of generalized body aches fevers and rash with work-up patient was noted to have sepsis secondary to pneumonia bacteremia he was seen by infectious disease. Currently being treated with ceftriaxone. During hospitalization patient had x3 episodes of hematemesis today. GI has been consulted for further evaluation. It is noted a decrease in hemoglobin since admission on 11 28 last CBC was noted on 11/30 7.2, MCV is 91.4, platelet count is 115. She states he was previously hospitalized about 2 months ago with complaints of melena and anemia he underwent EGD at that time he believes it is negative for varices but is unclear if he had ulcers. Currently in time evaluation he denies further nausea/vomiting he does complain of burning abdominal pain he denies melena, hematochezia, diarrhea, or constipation. Discussed plan for EGD tomorrow reviewed risk/benefits of both sedation and procedure patient verbalized understanding is agreeable. At this time we will change diet to clear liquids and will continue on PPI twice daily. Review of Systems: A 12 system, review was conducted and is negative except as noted in the HPI or here. Past Medical History Home Meds Reported Medications Furosemide* (Furosemide*) 40 Mg Tablet, 40 MG PO DAILY, TAB 11/28/18 Potassium Chloride* (K-Dur*) 10 Meq Tab.prt.sr, 20 MEQ PO DAILY, TAB 11/28/18 Folic Acid* (Folic Acid*) 1 Mg Tablet, 1 MG PO DAILY, TAB 11/28/18 Famotidine* (Famotidine*) 20 Mg Tablet, 20 MG PO BID, #60 TAB 11/28/18 Diphenhydramine Hcl (Banophen) 25 Mg Capsule, 25 MG PO Q4H, CAP 11/28/18 Medications Current Medications IV Flush (NS 3 ml) 3 ml PER PROTOCOL IV ; Start 11/28/18 at 16:30 Acetaminophen (Tylenol Supp) 650 mg Q6H PRN SC .PAIN 1-3 OR TEMP; Start 11/28/18 at 16:30 Oxycodone/ Acetaminophen (Percocet (5/ 325)) 1 tab Q6H PRN PO .MOD PAIN 4-6; Start 11/28/18 at 16:30 Ceftriaxone Sodium 50 ml @ 100 mls/hr Q24H IVPB Last administered on 12/01/18at 18:13; Admin Dose 100 MLS/HR; Start 11/28/18 at 17:00 Guaifenesin/ Dextromethorphan (Robitussin Dm Liquid Cup) 5 ml Q4H PRN PO cough Last administered on 12/01/18at 18:17; Admin Dose 5 ML; Start 11/29/18 at 09:30 Phenol (Cepastat Lozenge) 1 lozenge Q1H PRN MT cough Last administered on 12/02/18at 06:28; Admin Dose 1 LOZENGE; Start 11/29/18 at 09:30 Ferric Sodium Gluconate Complex 125 mg/Sodium Chloride 110 ml @ 110 mls/hr DAILY@1300 IVPB Last administered on 12/02/18at 13:17; Admin Dose 110 MLS/HR; Start 11/29/18 at 15:30; Stop 12/03/18 at 13:59 Diphenhydramine HCl (Benadryl) 25 mg Q6H PRN PO ITCHING Last administered on 11/30/18at 01:13; Admin Dose 25 MG; Start 11/30/18 at 00:30 Ondansetron HCl (Zofran Inj) 4 mg Q6H PRN IV NAUSEA AND/OR VOMITING Last administered on 12/02/18at 11:18; Admin Dose 4 MG; Start 12/02/18 at 11:30 Pantoprazole (Protonix Iv) 40 mg BID@,18 IV ; Start 12/02/18 at 18:00 Allergies: Coded Allergies: Penicillins (Verified Allergy, Intermediate, RASH, 11/28/18) Uncoded Allergies: PENICILLIN (Allergy, Unknown, 11/28/18) Past Surgical History Past Surgical Hx: no surgical history Social History Alcohol Use: sober Smoking Status: Never smoker Drug Use: none Exam/Review of Systems Exam Vitals Vital Signs Date Temp Pulse Resp B/P (MAP) Pulse Ox O2 O2 Flow FiO2 Time Delivery Rate 12/02/18 98.5 111 20 120/59 94 13:27 (79) 12/02/18 Room Air 10:40 11/28/18 2.0 18:07 Intake and Output 12/01/18 12/01/18 12/02/18 1515:00 23:00 07:00 IntakeIntake Total 1385 ml 890 ml 820 ml OutputOutput Total 1500 ml 1150 ml 700 ml BalanceBalance -115 ml -260 ml 120 ml Exam PHYSICAL EXAMINATION: GENERAL: Alert & oriented x 3, in no acute distress SKIN: No lesions HEAD: Normocephalic, atraumatic, no tenderness. EYES: Pupils equal reactive to light, no discharge. EARS/NOSE AND THROAT: Ears normal, nose normal, oropharynx normal, oral membranes well hydrated without lesions. NECK: Supple, no masses, thyroid normal, CHEST: Inspection within normal limits. CARDIOVASCULAR: Heart: Regular rate and rhythm, no murmurs, gallops or rubs. RESPIRATORY: Lungs clear to auscultation GASTROINTESTINAL AND LIVER: Abdomen: Soft, non tenderness, non-distended, no hernias, normoactive bowel sounds. Rectal: Deferred. GENITOURINARY: Male genitalia within normal limits. EXTREMITIES: No cyanosis, clubbing or edema. Results Result Diagram: 11/30/18 0423 11/30/18 0423 Results 24hrs Laboratory Tests Test 12/02/18 14:13 White Blood Count Pending Red Blood Count Pending Hemoglobin Pending Hematocrit Pending Mean Corpuscular Volume Pending Mean Corpuscular Hemoglobin Pending Mean Corpuscular Hemoglobin Concent Pending Red Cell Distribution Width Pending Platelet Count Pending Mean Platelet Volume Pending Medications Medication Current Medications IV Flush (NS 3 ml) 3 ml PER PROTOCOL IV ; Start 11/28/18 at 16:30 Acetaminophen (Tylenol Supp) 650 mg Q6H PRN SC .PAIN 1-3 OR TEMP; Start 11/28/18 at 16:30 Oxycodone/ Acetaminophen (Percocet (5/ 325)) 1 tab Q6H PRN PO .MOD PAIN 4-6; Start 11/28/18 at 16:30 Ceftriaxone Sodium 50 ml @ 100 mls/hr Q24H IVPB Last administered on 12/01/18 18:13; Admin Dose 100 MLS/HR; Start 11/28/18 at 17:00 Guaifenesin/ Dextromethorphan (Robitussin Dm Liquid Cup) 5 ml Q4H PRN PO cough Last administered on 12/01/18 18:17; Admin Dose 5 ML; Start 11/29/18 at 09:30 Phenol (Cepastat Lozenge) 1 lozenge Q1H PRN MT cough Last administered on 12/02/18 06:28; Admin Dose 1 LOZENGE; Start 11/29/18 at 09:30 Ferric Sodium Gluconate Complex 125 mg/Sodium Chloride 110 ml @ 110 mls/hr DAILY@1300 IVPB Last administered on 12/02/18 13:17; Admin Dose 110 MLS/HR; Start 11/29/18 at 15:30; Stop 12/03/18 at 13:59 Diphenhydramine HCl (Benadryl) 25 mg Q6H PRN PO ITCHING Last administered on 11/30/18 01:13; Admin Dose 25 MG; Start 11/30/18 at 00:30 Ondansetron HCl (Zofran Inj) 4 mg Q6H PRN IV NAUSEA AND/OR VOMITING Last adm inistered on 12/02/18 11:18; Admin Dose 4 MG; Start 12/02/18 at 11:30 Pantoprazole (Protonix Iv) 40 mg BID@06,18 IV ; Start 12/02/18 at 18:00 ZEUS RODRÍGUEZ December 02, 2018 15:12
[2018-12-02] MEDS: DIPHENHYDRAMINE 25 MG CAP PO PRN (16:38)
[2018-12-02] MEDS: CEFTRIAXONE 1 GM/50 ML (PMX) 50 ML IVPB SCH (16:38)
[2018-12-02] MEDS: PANTOPRAZOLE 40 MG INJ IV SCH (18:06)
[2018-12-02 20:00] VITALS: BP 106/52; PULSE 106; RESP 18
[2018-12-03] VITALS (13 sets, daily range): BP systolic 109–133; BP diastolic 57–76; PULSE 82–98; RESP 2–26
[2018-12-03] MEDS: CEPASTAT LOZENGE MT PRN ×3 (00:54→20:35)
[2018-12-03] MEDS: PANTOPRAZOLE 40 MG INJ IV SCH ×2 (06:05→18:01)
[2018-12-03] MEDS: SOD FERRIC GLUC COMPLX 125 MG in SOD CHLORIDE 0.9% 100 ML IVPB SCH (12:59)
--- NOTE | 2018-12-03 13:41 | CONS ---
Assessment/Plan Assessment/Plan Hospital Course (Demo Recall) Alert feels better looks comfortable no fevers overnight he has diffuse macular rash per report it was present on admission Microbiology: Blood cultures on admission grew Streptococcus group C, repeat blood cultures negative urine culture was negative Chest x-ray on admission revealed right lower lobe infiltrate Antimicrobials: Rocephin Physical examination: Obese well-developed middle-aged man who is in no distress. Head atraumatic normocephalic neck is supple. Chest rise sy mmetrical. Breath sounds diminished bases. Heart: S1-S2. Abdomen soft bowel sounds present. Assessment: 1. Strep bacteremia likely secondary to #2 2. Pneumonia 3. Anemia and thrombocytopenia 4. Rash consistent with allergic Plan: Patient remains stable, chest x-ray this morning improved, we are going to change antibiotics to IV clindamycin and start him on antihistamines. Consider to keep on IV antibiotics for couple more days and then discharged on oral clindamycin to complete 2 weeks treatment Consultation Date/Type/Reason Admit Date/Time November 28, 2018 at 14:39 Initial Consult Date Type of Consult id Date/Time of Note DATE: 12/03/18 TIME: 13:38 Exam/Review of Systems Exam Vitals Vital Signs Date Temp Pulse Resp B/P (MAP) Pulse Ox O2 O2 Flow FiO2 Time Delivery Rate 12/03/18 98.3 89 109/58 07:35 (75) 12/03/18 18 98 02:00 12/02/18 Room Air 10:40 Intake and Output 12/02/18 12/02/18 12/03/18 1515:00 23:00 07:00 IntakeIntake Total 630 ml 650 ml OutputOutput Total 1250 ml 1650 ml 600 ml BalanceBalance -620 ml -1000 ml -600 ml Results Result Diagram: 12/03/18 0924 12/03/18 0800 Results 24hrs Laboratory Tests Test 12/02/18 14:09 12/02/18 14:13 12/02/18 16:35 12/03/18 08:00 Hepatitis B Surface NEGATIVE Antigen Hepatitis B Surface NEGATIVE Antibody Hepatitis B Core NEGATIVE Total Antibody Hepatitis C Antibody NEGATIVE White Blood Count 6.5 # Red Blood Count 2.29 L Hemoglobin 6.8 *L Hematocrit 21.2 L Mean Corpuscular Volume 92.6 Mean Corpuscular 29.7 Hemoglobin Mean Corpuscular 32.1 Hemoglobin Concent Red Cell Distribution 16.6 H Width Platelet Count 117 L Mean Platelet Volume 11.7 H Immature Granulocytes % 1.200 H Neutrophils % Segmented Neutrophils 61 % (Manual) Band Neutrophils % 1 (Manual) Lymphocytes % Lymphocytes % (Manual) 13 L Monocytes % Monocytes % (Manual) 6 Eosinophils % Eosinophils % (Manual) 18 H Basophils % Promyelocytes % (Manual) 1 H Nucleated Red Blood 0.0 Cells % Immature Granulocytes # 0.080 H Neutrophils # Neutrophils # (Manual) 4.0 Band Neutrophils # 0.0 Lymphocytes (Manual) 0.8 Lymphocytes # Monocytes # Monocytes # (Manual) 0.3 Eosinophils # Basophils # Promyelocytes # 0.0 Nucleated Red Blood Cells # Platelet Estimate DECREASED Giant Platelets 1 H Polychromasia 1+ Hypochromasia 2+ Poikilocytosis 1+ Anisocytosis 1+ Macrocytosis 1+ Tear Drop Cells 1+ Ovalocytes 1+ Prothrombin Time 19.5 H Prothrombin Time Ratio 1.5 INR International 1.64 Normalized Ratio Sodium Level 140 Potassium Level 4.0 Chloride Level 110 Carbon Dioxide Level 25 Anion Gap 5 Blood Urea Nitrogen 15 Creatinine 0.64 Est Glomerular Filtrat > 60 Rate mL/min Glucose Level 101 Calcium Level 8.1 L Total Bilirubin 1.0 Direct Bilirubin 0.00 Indirect Bilirubin 1.0 Aspartate Amino 55 H Transf (AST/SGOT) Alanine 27 Aminotransferase (ALT/SG PT) Alkaline Phosphatase 140 H Total Protein 6.1 Albumin 2.6 L Globulin 3.50 H Albumin/Globulin Ratio 0.74 Test 12/03/18 09:24 White Blood Count 9.4 # Red Blood Count 3.14 #L Hemoglobin 9.0 #L Hematocrit 28.1 #L Mean Corpuscular Volume 89.5 Mean Corpuscular 28.7 L Hemoglobin Mean Corpuscular 32.0 Hemoglobin Concent Red Cell Distribution 18.7 H Width Platelet Count 144 # Mean Platelet Volume 10.8 H Immature Granulocytes % 1.900 H Neutrophils % 39.8 Lymphocytes % 26.4 Monocytes % 8.7 Eosinophils % 22.5 H Basophils % 0.7 Nucleated Red Blood 0.0 Cells % Immature Granulocytes # 0.180 H Neutrophils # 3.7 Lymphocytes # 2.5 Monocytes # 0.8 Eosinophils # 2.1 H Basophils # 0.1 Nucleated Red Blood 0.0 Cells # Medications Medication Current Medications IV Flush (NS 3 ml) 3 ml PER PROTOCOL IV ; Start 5/2/19 at 16:30 Acetaminophen (Tylenol Supp) 650 mg Q6H PRN NV .PAIN 1-3 OR TEMP; Start 11/28/18 at 16:30 Oxycodone/ Acetaminophen (Percocet (5/ 325)) 1 tab Q6H PRN PO .MOD PAIN 4-6; Start 11/28/18 at 16:30 Ceftriaxone Sodium 50 ml @ 100 mls/hr Q24H IVPB Last administered on 12/02/18 16:38; Admin Dose 100 MLS/HR; Start 11/28/18 at 17:00 Guaifenesin/ Dextromethorphan (Robitussin Dm Liquid Cup) 5 ml Q4H PRN PO cough Last administered on 12/01/18 18:17; Admin Dose 5 ML; Start 11/29/18 at 09:30 Phenol (Cepastat Lozenge) 1 lozenge Q1H PRN MT cough Last administered on 12/03/18 09:44; Admin Dose 1 LOZENGE; Start 11/29/18 at 09:30 Ferric Sodium Gluconate Complex 125 mg/Sodium Chloride 110 ml @ 110 mls/hr DAILY@1300 IVPB Last administered on 12/03/18 12:59; Admin Dose 110 MLS/HR; Start 11/29/18 at 15:30; Stop 12/03/18 at 13:59 Diphenhydramine HCl (Benadryl) 25 mg Q6H PRN PO ITCHING Last administered on 12/02/18 16:38; Admin Dose 25 MG; Start 11/30/18 at 00:30 Ondansetron HCl (Zofran Inj) 4 mg Q6H PRN IV NAUSEA AND/OR VOMITING Last administered on 12/02/18 11:18; Admin Dose 4 MG; Start 12/02/18 at 11:30 Pantoprazole (Protonix Iv) 40 mg BID@06,18 IV Last administered on 12/03/18 06:05; Admin Dose 40 MG; Start 12/02/18 at 18:00 ANGELA CUELLO NP December 03, 2018 13:41
--- NOTE | 2018-12-03 13:56 | PN ---
Date/Time of Note Date/Time of Note DATE: 12/03/18 TIME: 13:54 Assessment/Plan VTE Prophylaxis Risk score (from Nsg)>0 risk: 3 Pharmacological prophylaxis: NA/contraindicated Pharm contraindication: bleeding Lines/Catheters IV Catheter Type (from Nrsg): Mid Line Urinary Cath still in place: No Assessment/Plan Hospital Course 48 yo male with h/o alcoholic liver disease who presents with likely drug eruption from lasix as well as pneumonia Sepsis 2/2 pneumonia and Group C strep bacteremia - Continue ceftriaxone - No evidence of vegetation on TTE -Repeat cultures are negative Rash: - Resolved nicely. Likely related to drug exposure prior to presentation. Eosinophilia has resolved so DRESS unlikely - s/p steroids and antihistamines in the ED - Supportive care for now and monitor Upper GI bleed -Patient did have one episode of GI bleed yesterday, patient does have a history of upper GI bleed in the past, EGD at outside facility was reportedly negative for varices but patient is unclear if ulcers were noted -PPI twice daily -GI consultation appreciated, EGD today -Patient with loose tarry stool today likely secondary to upper GI bleed from yesterday Reported h/o alcoholic liver disease: - US of liver without ascites, shows fatty infiltration -Patient has quit alcohol Iron deficiency anemia secondary to history of alcohol abuse and poor nutrition - Replete with IV iron DC plan: EGD today Result Diagram: 12/03/18 0924 12/03/18 0800 Results 24hrs Laboratory Tests Test 12/02/18 14:09 12/02/18 14:13 12/02/18 16:35 12/03/18 08:00 Hepatitis B Surface NEGATIVE Antigen Hepatitis B Surface NEGATIVE Antibody Hepatitis B Core NEGATIVE Total Antibody Hepatitis C Antibody NEGATIVE White Blood Count 6.5 # Red Blood Count 2.29 L Hemoglobin 6.8 *L Hematocrit 21.2 L Mean Corpuscular Volume 92.6 Mean Corpuscular 29.7 Hemoglobin Mean Corpuscular 32.1 Hemoglobin Concent Red Cell Distribution 16.6 H Width Platelet Count 117 L Mean Platelet Volume 11.7 H Immature Granulocytes % 1.200 H Neutrophils % Segmented Neutrophils 61 % (Manual) Band Neutrophils % 1 (Manual) Lymphocytes % Lymphocytes % (Manual) 13 L Monocytes % Monocytes % (Manual) 6 Eosinophils % Eosinophils % (Manual) 18 H Basophils % Promyelocytes % (Manual) 1 H Nucleated Red Blood 0.0 Cells % Immature Granulocytes # 0.080 H Neutrophils # Neutrophils # (Manual) 4.0 Band Neutrophils # 0.0 Lymphocytes (Manual) 0.8 Lymphocytes # Monocytes # Monocytes # (Manual) 0.3 Eosinophils # Basophils # Promyelocytes # 0.0 Nucleated Red Blood Cells # Platelet Estimate DECREASED Giant Platelets 1 H Polychromasia 1+ Hypochromasia 2+ Poikilocytosis 1+ Anisocytosis 1+ Macrocytosis 1+ Tear Drop Cells 1+ Ovalocytes 1+ Prothrombin Time 19.5 H Prothrombin Time Ratio 1.5 INR International 1.64 Normalized Ratio Sodium Level 140 Potassium Level 4.0 Chloride Level 110 Carbon Dioxide Level 25 Anion Gap 5 Blood Urea Nitrogen 15 Creatinine 0.64 Est Glomerular Filtrat > 60 Rate mL/min Glucose Level 101 Calcium Level 8.1 L Total Bilirubin 1.0 Direct Bilirubin 0.00 Indirect Bilirubin 1.0 Aspartate Amino 55 H Transf (AST/SGOT) Alanine 27 Aminotransferase (ALT/SG PT) Alkaline Phosphatase 140 H Total Protein 6.1 Albumin 2.6 L Globulin 3.50 H Albumin/Globulin Ratio 0.74 Test 12/03/18 09:24 White Blood Count 9.4 # Red Blood Count 3.14 #L Hemoglobin 9.0 #L Hematocrit 28.1 #L Mean Corpuscular Volume 89.5 Mean Corpuscular 28.7 L Hemoglobin Mean Corpuscular 32.0 Hemoglobin Concent Red Cell Distribution 18.7 H Width Platelet Count 144 # Mean Platelet Volume 10.8 H Immature Granulocytes % 1.900 H Neutrophils % 39.8 Lymphocytes % 26.4 Monocytes % 8.7 Eosinophils % 22.5 H Basophils % 0.7 Nucleated Red Blood 0.0 Cells % Immature Granulocytes # 0.180 H Neutrophils # 3.7 Lymphocytes # 2.5 Monocytes # 0.8 Eosinophils # 2.1 H Basophils # 0.1 Nucleated Red Blood 0.0 Cells # Subjective 24 Hr Interval Summary Constitutional: no complaints Exam/Review of Systems Exam Vitals Vital Signs Date Temp Pulse Resp B/P (MAP) Pulse Ox O2 O2 Flow FiO2 Time Delivery Rate 12/03/18 98.5 94 2 126/76 97 13:47 (93) 12/02/18 Room Air 10:40 Intake and Output 12/02/18 12/02/18 12/03/18 1515:00 23:00 07:00 IntakeIntake Total 630 ml 650 ml OutputOutput Total 1250 ml 1650 ml 600 ml BalanceBalance -620 ml -1000 ml -600 ml Constitutional: alert, oriented Respiratory: clear to auscultation Cardiovascular: regular rate and rhythm Gastrointestinal: soft; No distended Musculoskeletal: nl extremities to inspection Results Results 24hrs Laboratory Tests Test 12/02/18 14:09 12/02/18 14:13 12/02/18 16:35 12/03/18 08:00 Hepatitis B Surface NEGATIVE Antigen Hepatitis B Surface NEGATIVE Antibody Hepatitis B Core NEGATIVE Total Antibody Hepatitis C Antibody NEGATIVE White Blood Count 6.5 # Red Blood Count 2.29 L Hemoglobin 6.8 *L Hematocrit 21.2 L Mean Corpuscular Volume 92.6 Mean Corpuscular 29.7 Hemoglobin Mean Corpuscular 32.1 Hemoglobin Concent Red Cell Distribution 16.6 H Width Platelet Count 117 L Mean Platelet Volume 11.7 H Immature Granulocytes % 1.200 H Neutrophils % Segmented Neutrophils 61 % (Manual) Band Neutrophils % 1 (Manual) Lymphocytes % Lymphocytes % (Manual) 13 L Monocytes % Monocytes % (Manual) 6 Eosinophils % Eosinophils % (Manual) 18 H Basophils % Promyelocytes % (Manual) 1 H Nucleated Red Blood 0.0 Cells % Immature Granulocytes # 0.080 H Neutrophils # Neutrophils # (Manual) 4.0 Band Neutrophils # 0.0 Lymphocytes (Manual) 0.8 Lymphocytes # Monocytes # Monocytes # (Manual) 0.3 Eosinophils # Basophils # Promyelocytes # 0.0 Nucleated Red Blood Cells # Platelet Estimate DECREASED Giant Platelets 1 H Polychromasia 1+ Hypochromasia 2+ Poikilocytosis 1+ Anisocytosis 1+ Macrocytosis 1+ Tear Drop Cells 1+ Ovalocytes 1+ Prothrombin Time 19.5 H Prothrombin Time Ratio 1.5 INR International 1.64 Normalized Ratio Sodium Level 140 Potassium Level 4.0 Chloride Level 110 Carbon Dioxide Level 25 Anion Gap 5 Blood Urea Nitrogen 15 Creatinine 0.64 Est Glomerular Filtrat > 60 Rate mL/min Glucose Level 101 Calcium Level 8.1 L Total Bilirubin 1.0 Direct Bilirubin 0.00 Indirect Bilirubin 1.0 Aspartate Amino 55 H Transf (AST/SGOT) Alanine 27 Aminotransferase (ALT/SG PT) Alkaline Phosphatase 140 H Total Protein 6.1 Albumin 2.6 L Globulin 3.50 H Albumin/Globulin Ratio 0.74 Test 12/03/18 09:24 White Blood Count 9.4 # Red Blood Count 3.14 #L Hemoglobin 9.0 #L Hematocrit 28.1 #L Mean Corpuscular Volume 89.5 Mean Corpuscular 28.7 L Hemoglobin Mean Corpuscular 32.0 Hemoglobin Concent Red Cell Distribution 18.7 H Width Platelet Count 144 # Mean Platelet Volume 10.8 H Immature Granulocytes % 1.900 H Neutrophils % 39.8 Lymphocytes % 26.4 Monocytes % 8.7 Eosinophils % 22.5 H Basophils % 0.7 Nucleated Red Blood 0.0 Cells % Immature Granulocytes # 0.180 H Neutrophils # 3.7 Lymphocytes # 2.5 Monocytes # 0.8 Eosinophils # 2.1 H Basophils # 0.1 Nucleated Red Blood 0.0 Cells # Medications Medication Current Medications IV Flush (NS 3 ml) 3 ml PER PROTOCOL IV ; Start 11/28/18 at 16:30 Acetaminophen (Tylenol Supp) 650 mg Q6H PRN [place] .PAIN 1-3 OR TEMP; Start 11/28/18 at 16:30 Oxycodone/ Acetaminophen (Percocet (5/ 325)) 1 tab Q6H PRN PO .MOD PAIN 4-6; Start 11/28/18 at 16:30 Guaifenesin/ Dextromethorphan (Robitussin Dm Liquid Cup) 5 ml Q4H PRN PO cough Last administered on 12/01/18at 18:17; Admin Dose 5 ML; Start 11/29/18 at 09:30 Phenol (Cepastat Lozenge) 1 lozenge Q1H PRN MT cough Last administered on 12/03/18at 09:44; Admin Dose 1 LOZENGE; Start 11/29/18 at 09:30 Ferric Sodium Gluconate Complex 125 mg/Sodium Chloride 110 ml @ 110 mls/hr DAILY@1300 IVPB Last administered on 12/03/18at 12:59; Admin Dose 110 MLS/HR; Start 11/29/18 at 15:30; Stop 12/03/18 at 13:59 Diphenhydramine HCl (Benadryl) 25 mg Q6H PRN PO ITCHING Last administered on 12/02/18at 16:38; Admin Dose 25 MG; Start 11/30/18 at 00:30 Ondansetron HCl (Zofran Inj) 4 mg Q6H PRN IV NAUSEA AND/OR VOMITING Last administered on 12/02/18at 11:18; Admin Dose 4 MG; Start 12/02/18 at 11:30 Pantoprazole (Protonix Iv) 40 mg BID@06,18 IV Last administered on 12/03/18at 06:05; Admin Dose 40 MG; Start 12/02/18 at 18:00 Clindamycin HCl/ Dextrose 50 ml @ 50 mls/hr Q8 IVPB ; Start 12/03/18 at 15:30 Loratadine (Claritin) 10 mg DAILY PO ; Start 12/03/18 at 14:00 CHRISTIAN GUAJARDO December 03, 2018 13:56
[2018-12-03] MEDS: LORATADINE 10 MG TAB PO SCH (15:30)
[2018-12-03] MEDS: CLINDAMYCIN 600 MG/D5W (PMX) 50 ML IVPB SCH ×2 (16:01→22:09)
[2018-12-03] MEDS ORDERED: LIDOCAINE 2% (SDV) 5 ML INJ ONE (16:37)
[2018-12-03] MEDS ORDERED: PROPOFOL 20 ML ONE (16:37)
--- NOTE | 2018-12-03 16:54 | PREAC ---
Date/Time of Note Date/Time of Note DATE: 12/03/18 TIME: 16:52 Anesthesia Eval and Record Evaluation Time Pre-Procedure Interview DATE: 12/03/18 TIME: 16:38 Age 48 Sex male NPO: 8 hrs Preoperative diagnosis Epigastric Pain Planned procedure EGD Past Medical History Past Medical History: Includes Cardio: Arrythmia Hepatic: Alcohol abuse, Cirrhosis Surgery & Anesthesia Issues No known issue Meds Anticoagulation: No Beta Angelita within 24 hr: No Reason Beta Angelita not given: Pt. not on B-Angelita Reported Medications Furosemide* (Furosemide*) 40 Mg Tablet, 40 MG PO DAILY, TAB 11/28/18 Potassium Chloride* (K-Dur*) 10 Meq Tab.prt.sr, 20 MEQ PO DAILY, TAB 11/28/18 Folic Acid* (Folic Acid*) 1 Mg Tablet, 1 MG PO DAILY, TAB 11/28/18 Famotidine* (Famotidine*) 20 Mg Tablet, 20 MG PO BID, #60 TAB 11/28/18 Diphenhydramine Hcl (Banophen) 25 Mg Capsule, 25 MG PO Q4H, CAP 11/28/18 Current Medications IV Flush (NS 3 ml) 3 ml PER PROTOCOL IV ; Start 11/28/18 at 16:30 Acetaminophen (Tylenol Supp) 650 mg Q6H PRN [place] .PAIN 1-3 OR TEMP; Start 11/28/18 at 16:30 Oxycodone/ Acetaminophen (Percocet (5/ 325)) 1 tab Q6H PRN PO .MOD PAIN 4-6; Start 11/28/18 at 16:30 Guaifenesin/ Dextromethorphan (Robitussin Dm Liquid Cup) 5 ml Q4H PRN PO cough Last administered on 12/01/18at 18:17; Admin Dose 5 ML; Start 11/29/18 at 09:30 Phenol (Cepastat Lozenge) 1 lozenge Q1H PRN MT cough Last administered on 12/03/18at 09:44; Admin Dose 1 LOZENGE; Start 11/29/18 at 09:30 Diphenhydramine HCl (Benadryl) 25 mg Q6H PRN PO ITCHING Last administered on 12/02/18at 16:38; Admin Dose 25 MG; Start 11/30/18 at 00:30 Ondansetron HCl (Zofran Inj) 4 mg Q6H PRN IV NAUSEA AND/OR VOMITING Last administered on 12/02/18at 11:18; Admin Dose 4 MG; Start 12/02/18 at 11:30 Pantoprazole (Protonix Iv) 40 mg BID@06,18 IV Last administered on 12/03/18at 06:05; Admin Dose 40 MG; Start 12/02/18 at 18:00 Clindamycin HCl/ Dextrose 50 ml @ 50 mls/hr Q8 IVPB Last administered on 12/03/18at 16:01; Admin Dose 50 MLS/HR; Start 12/03/18 at 15:30 Loratadine (Claritin) 10 mg DAILY PO ; Start 12/03/18 at 14:00 Meds reviewed: Yes Allergies Coded Allergies: Penicillins (Verified Allergy, Intermediate, RASH, 11/28/18) Uncoded Allergies: PENICILLIN (Allergy, Unknown, 11/28/18) Allergies Reviewed: Yes Labs/Studies Labs Reviewed: Reviewed by anesthesiologist Result Diagram: 12/03/1824 12/03/18 0800 Laboratory Tests 12/03/18 08:00 12/03/18 09:24 test: N/A Pre-procedure Exam Last vitals Vital Signs Date Temp Pulse Resp B/P (MAP) Pulse Ox O2 O2 Flow FiO2 Time Delivery Rate 12/03/18 98.3 91 26 125/70 94 16:30 (88) 12/02/18 Room Air 10:40 Airway: Adequate mouth opening Mallampati: Mallampati III Teeth: Normal Lung: Normal Heart: Normal ASA Physical Status ASA physical status: 3 Emergency: None Planned Anesthetic General/MAC: MAC Pre-operative Attestations Prior to commencing anesthesia and surgery, the patient was re-evaluated, there was verification of: *The patient's identity *The results of appropriate recent lab work and preoperative vital signs *The above evaluation not changing prior to induction *Anesthetic plan, risk benefits, alternative and complications discussed with patient/family; questions answered; patient/family understands, accepts and wishes to proceed. NEIDA MOONEY MD December 03, 2018 16:54
[2018-12-03] MEDS ORDERED: HYDROmorphONE 1 MG/5 ML IV SYRINGE IV PRN ×2 (17:00)
[2018-12-03] MEDS ORDERED: ONDANSETRON 4 MG INJ IV PRN (17:00)
--- NOTE | 2018-12-03 17:38 | PAC ---
Date/Time of Note Date/Time of Note DATE: 12/03/18 TIME: 17:38 Post-Anesthesia Notes Post-Anesthesia Note Last documented vital signs Vital Signs Date Temp Pulse Resp B/P (MAP) Pulse Ox O2 O2 Flow FiO2 Time Delivery Rate 12/03/18 88 22 114/68 99 Nasal 17:15 (83) Cannula 12/03/18 3.0 17:12 12/03/18 98.6 17:02 Activity: WNL Respiratory function: WNL Cardiovascular function: WNL Mental status: Baseline Pain reasonably controlled: Yes Hydration appropriate: Yes Nausea/Vomiting absent: Yes NEIDA MOONEY MD December 03, 2018 17:38
[2018-12-03] MEDS: DIPHENHYDRAMINE 25 MG CAP PO PRN (20:30)
[2018-12-04 01:31] VITALS: BP 108/60; PULSE 83; RESP 18
[2018-12-04] MEDS: CEPASTAT LOZENGE MT PRN (05:37)
[2018-12-04] MEDS: DIPHENHYDRAMINE 25 MG CAP PO PRN (05:37)
[2018-12-04] MEDS: PANTOPRAZOLE 40 MG INJ IV SCH (05:38)
[2018-12-04] MEDS: CLINDAMYCIN 600 MG/D5W (PMX) 50 ML IVPB SCH ×2 (05:40→13:49)
[2018-12-04 08:20] VITALS: BP 97/56; PULSE 90; RESP 18
[2018-12-04] MEDS: LORATADINE 10 MG TAB PO SCH (08:58)
--- NOTE | 2018-12-04 10:39 | PN ---
Date/Time of Note Date/Time of Note DATE: 12/04/18 TIME: 10:38 Assessment/Plan VTE Prophylaxis Risk score (from Ns)>0 risk: 3 SCD applied (from Ns): No SCD contraindicated: low risk/ambulating Pharmacological prophylaxis: NA/contraindicated Pharm contraindication: low risk/ambulating Lines/Catheters IV [facility] (from [facility] Mid Line Urinary Cath still in place: No Assessment/Plan Hospital Course Summary Assessment and Plan: Assessment: Hematemesis EGD 12/03/18 Mild distal esophagitis No evidence of esophageal varices Moderate gastritis rule out H. pylori infection biopsies obtained DEBBIE Query hx of Hepatic steatosis -Quit drinking alcohol 2 months ago Bacteremia-Streptococcus group C -Repeat blood cultures negative Pneumonia- being followed by ID Rash- resolved- thought 08/31 to [facility] Reported h/o alcoholic liver disease Plan: PPI BID x4 weeks Bx- pending Pt to f/u with GI after d/c to review pathology Continue to avoid alcohol DC planning per hospitalist Patient seen in collaboration with Errol Diehl Subjective: Course reviewed with nursing staff Patient interviewed and examined All labs, imaging and other results reviewed The patient feels well, hemoglobin with appropriate response to blood transfusions. No overt signs of GI bleed Patient denies nausea/vomiting or abdominal pain. Tolerating diet well Exam PHYSICAL EXAMINATION: GENERAL: Alert & oriented x 3, in no acute distress SKIN: No lesions HEAD: Normocephalic, atraumatic, no tenderness. EYES: Pupils equal reactive to light, no discharge. EARS/NOSE AND THROAT: Ears normal. NECK: Supple, no masses, thyroid normal, CHEST: Inspection within normal limits. CARDIOVASCULAR: Heart: Regular rate and rhythm, no murmurs, gallops or rubs. RESPIRATORY: Lungs clear to auscultation GASTROINTESTINAL AND LIVER: Abdomen: Soft, non tenderness, non-distended, no hernias, normoactive bowel sounds. Rectal: Deferred. GENITOURINARY: Male genitalia within normal limits. EXTREMITIES: No cyanosis, clubbing or edema. Result Diagram: 12/03/18 0924 12/03/18 0800 Results 24hrs Laboratory Tests Test 12/04/18 06:08 Lab Scanned Report BLOOD TRANSFUSION Exam/Review of Systems Exam Vitals Vital Signs Date Temp Pulse Resp B/P (MAP) Pulse Ox O2 O2 Flow FiO2 Time Delivery Rate 12/04/18 97.4 90 18 97/56 (98) 95 08:20 12/03/18 Nasal 17:37 Cannula 12/03/18 3.0 17:12 Intake and Output 12/03/18 12/03/18 12/04/18 1414:59 22:59 06:59 IntakeIntake Total 1180 ml 530 ml 100 ml OutputOutput Total 3425 ml 200 ml 900 ml BalanceBalance -2245 ml 330 ml -800 ml Results Results 24hrs Laboratory Tests Test 12/04/18 06:08 Lab Scanned Report BLOOD TRANSFUSION Medications Medication Current Medications IV Flush (NS 3 ml) 3 ml PER PROTOCOL IV ; Start 11/28/18 at 16:30 Acetaminophen (Tylenol Supp) 650 mg Q6H PRN [place] .PAIN 1-3 OR TEMP; Start 11/28/18 at 16:30 Oxycodone/ Acetaminophen (Percocet (5/ 325)) 1 tab Q6H PRN PO .MOD PAIN 4-6; Start 11/28/18 at 16:30 Guaifenesin/ Dextromethorphan (Robitussin Dm Liquid Cup) 5 ml Q4H PRN PO cough Last administered on 12/01/18 18:17; Admin Dose 5 ML; Start 11/29/18 at 09:30 Phenol (Cepastat Lozenge) 1 lozenge Q1H PRN MT cough Last administered on 12/04/18at 05:37; Admin Dose 1 LOZENGE; Start 11/29/18 at 09:30 Diphenhydramine HCl (Benadryl) 25 mg Q6H PRN PO ITCHING Last administered on 12/04/18at 05:37; Admin Dose 25 MG; Start 11/30/18 at 00:30 Ondansetron HCl (Zofran Inj) 4 mg Q6H PRN IV NAUSEA AND/OR VOMITING Last administered on 12/02/18 11:18; Admin Dose 4 MG; Start 12/02/18 at 11:30 Pantoprazole (Protonix Iv) 40 mg BID@06,18 IV Last administered on 12/04/18at 05:38; Admin Dose 40 MG; Start 12/02/18 at 18:00 Clindamycin HCl/ Dextrose 50 ml @ 50 mls/hr Q8 IVPB Last administered on 5/8/19at 05:40; Admin Dose 50 MLS/HR; Start 12/03/18 at 15:30 Loratadine (Claritin) 10 mg DAILY PO Last administered on 12/04/18at 08:58; Admin Dose 10 MG; Start 12/03/18 at 14:00 ZEUS RODRÍGUEZ December 04, 2018 10:39
--- NOTE | 2018-12-04 11:18 | CONS ---
Assessment/Plan Assessment/Plan Hospital Course (Demo Recall) All noted, no acute events, no fevers Microbiology: Blood cultures on admission grew Streptococcus group C, repeat blood cultures negative urine culture was negative Chest x-ray on admission revealed right lower lobe infiltrate Antimicrobials: Clindamycin Physical examination: Obese well-developed middle-aged man who is in no distress. Head atraumatic normocephalic neck is supple. Chest rise symmetrical. Breath sounds diminished bases. Heart: S1-S2. Abdomen soft bowel sounds present. Assessment: 1. S/p strep bacteremia secondary to #2 2. Pneumonia 3. Anemia and thrombocytopenia 4. Rash consistent with allergic Plan: Patient remains stable, continue on IV antibiotics for couple more days and then change to oral clindamycin to complete 2 weeks treatment, GI rec-s noted Consultation Date/Type/Reason Admit Date/Time November 28, 2018 at 14:39 Initial Consult Date Type of Consult id Date/Time of Note DATE: 12/04/18 TIME: 11:16 Exam/Review of Systems Exam Vitals Vital Signs Date Temp Pulse Resp B/P (MAP) Pulse Ox O2 O2 Flow FiO2 Time Delivery Rate 12/04/18 97.4 90 18 97/56 (70) 95 08:20 12/03/18 Nasal 17:37 Cannula 12/03/18 3.0 17:12 Intake and Output 12/03/18 12/03/18 12/04/18 1515:00 23:00 07:00 IntakeIntake Total 1180 ml 530 ml 100 ml OutputOutput Total 3425 ml 200 ml 900 ml BalanceBalance -2245 ml 330 ml -800 ml Results Result Diagram: 12/03/18 0924 12/03/18 0800 Results 24hrs Laboratory Tests Test 12/04/18 06:08 Lab Scanned Report BLOOD TRANSFUSION Medications Medication Current Medications IV Flush (NS 3 ml) 3 ml PER PROTOCOL IV ; Start 11/28/18 at 16:30 Acetaminophen (Tylenol Supp) 650 mg Q6H PRN ID .PAIN 1-3 OR TEMP; Start 11/28/18 at 16:30 Oxycodone/ Acetaminophen (Percocet (5/ 325)) 1 tab Q6H PRN PO .MOD PAIN 4-6; Start 11/28/18 at 16:30 Guaifenesin/ Dextromethorphan (Robitussin Dm Liquid Cup) 5 ml Q4H PRN PO cough Last administered on 12/01/18 18:17; Admin Dose 5 ML; Start 11/29/18 at 09:30 Phenol (Cepastat Lozenge) 1 lozenge Q1H PRN MT cough Last administered on 12/04/18 05:37; Admin Dose 1 LOZENGE; Start 11/29/18 at 09:30 Diphenhydramine HCl (Benadryl) 25 mg Q6H PRN PO ITCHING Last administered on 12/04/18 05:37; Admin Dose 25 MG; Start 11/30/18 at 00:30 Ondansetron HCl (Zofran Inj) 4 mg Q6H PRN IV NAUSEA AND/OR VOMITING Last administered on 12/02/18 11:18; Admin Dose 4 MG; Start 12/02/18 at 11:30 Pantoprazole (Protonix Iv) 40 mg BID@06,18 IV Last administered on 12/04/18 05:38; Admin Dose 40 MG; Start 12/02/18 at 18:00 Clindamycin HCl/ Dextrose 50 ml @ 50 mls/hr Q8 IVPB Last administered on 12/04/18 05:40; Admin Dose 50 MLS/HR; Start 12/03/18 at 15:30 Loratadine (Claritin) 10 mg DAILY PO Last administered on 12/04/18 08:58; Admin Dose 10 MG; Start 12/03/18 at 14:00 ANGELA CUELLO NP December 04, 2018 11:17
--- NOTE | 2018-12-04 12:45 | PDOCDIS ---
Discharge Instructions CONDITION [id number] Patient Condition: [id number] Good HOME CARE INSTRUCTIONS: [id number] Diet Instructions: [id number] Regular ACTIVITY: [id number] Activity Restrictions: [id number] No Restrictions FOLLOW UP/APPOINTMENTS Follow-up Plan Follow-up with your PCP in 1 to 2 weeks, follow-up with home health CHRISTIAN GUAJARDO December 04, 2018 12:45
[2018-12-04 14:30] VITALS: BP 110/58; RESP 18
--- NOTE | 2018-12-04 19:24 | DS ---
Date/Time of Note Date/Time of Note DATE: 12/04/18 TIME: 19:19 Discharge Summary Admission/Discharge Info Admit Date/Time November 28, 2018 at 14:39 Discharge Date/Time December 04, 2018 at 15:45 Discharge Diagnosis 48 yo male with h/o alcoholic liver disease who presents with likely drug eruption from lasix as well as pneumonia Sepsis 2/2 pneumonia and Group C strep bacteremia -Continue ceftriaxone to complete a two-week course from first negative culture, home health for IV antibiotics has been arranged -No evidence of vegetation on TTE -Repeat cultures are negative Rash: -Possible secondary Lasix, Lasix has been discontinued - Resolved nicely. Likely related to drug exposure prior to presentation. Eosinophilia has resolved so DRESS unlikely - s/p steroids and antihistamines in the ED Acute blood loss anemia secondary to upper GI bleed -Status post transfusion -Patient did have one episode of GI bleed, patient does have a history of upper GI bleed in the past, EGD at outside facility was reportedly negative for varices but patient is unclear if ulcers were noted -PPI twice daily -GI consultation appreciated, EGD during this hospitalization showed Mild distal esophagitis, no varices and moderate gastritis Reported h/o alcoholic liver disease: - US of liver without ascites, shows fatty infiltration -Patient has quit alcohol Iron deficiency anemia secondary to history of alcohol abuse and poor nutrition -Status post IV iron Patient Condition: Good Hospital Course Patient is a 48 yo male with h/o alcoholic liver disease who presents with likely drug eruption from lasix as well as pneumonia. Patient had bacteremia secondary to group C strep likely from pneumonia. Patient was seen by ID and placed on IV antibiotics, patient's repeat blood culture on 11/30/2018 was negative as was echo. Patient did have a rash thought to be secondary Lasix which did resolve, Lasix was discontinued. Patient did have an episode of upper GI bleed, EGD during this hospitalization showed mild distal esophagitis, no varices and moderate gastritis was noted. Patient was noted to be anemic and received 2 units of blood. Patient need to complete a 2-week course of IV antibiotics, home health was arranged to continue Rocephin for total of 14 days after the first negative blood culture on 11/30/2017. On the day of discharge patient's vitals, labs and physical exam are stable. Home Meds Reported Medications Folic Acid* (Folic Acid*) 1 Mg Tablet, 1 MG PO DAILY, TAB 11/28/18 Famotidine* (Famotidine*) 20 Mg Tablet, 20 MG PO BID, #60 TAB 11/28/18 Diphenhydramine Hcl (Banophen) 25 Mg Capsule, 25 MG PO Q4H, CAP 11/28/18 Discontinued Reported Medications Furosemide* (Furosemide*) 40 Mg Tablet, 40 MG PO DAILY, TAB 11/28/18 Potassium Chloride* (K-Dur*) 10 Meq Tab.prt.sr, 20 MEQ PO DAILY, TAB 11/28/18 Follow-up Plan Follow-up with your PCP in 1 to 2 weeks, follow-up with home health Primary Care Provider Care Physician No Primary Time spent on discharge: > 30 minutes CHRISTIAN GUAJARDO December 04, 2018 19:24
== END 2018-12-04 15:45 | disposition home health service (06) | DRG 871 ==
LOC: E/R 13:34 → EDSEX 13:34 → ICU 14:39 → SUATTDRO 15:40 → CANRESERV 19:28 → EDBEDREQSVC 19:40 → CANRESERV 21:31 → 2NE 11-30 15:58
PROVIDERS: ADMIT Internal Medicine; ATTEND Internal Medicine
PROC: 02HV33Z Insertion of Infusion Device into Superior Vena Cava, Percutaneous Approach (ICD-10-PCS; principal; 2018-11-28)
PROC: 30233N1 Transfusion of Nonautologous Red Blood Cells into Peripheral Vein, Percutaneous Approach (ICD-10-PCS; 2018-12-02)
PROC: 0DB68ZX Excision of Stomach, Via Natural or Artificial Opening Endoscopic, Diagnostic (ICD-10-PCS; 2018-12-03)
DX: A40.8 Other streptococcal sepsis (principal); J18.9 Pneumonia, unspecified organism; E87.2 Acidosis; D62 Acute posthemorrhagic anemia; K92.0 Hematemesis; D72.1 Eosinophilia; K70.9 Alcoholic liver disease, unspecified; F10.20 Alcohol dependence, uncomplicated; D50.9 Iron deficiency anemia, unspecified; E66.9 Obesity, unspecified; Z68.37 Body mass index [BMI] 37.0-37.9, adult; L27.0 Generalized skin eruption due to drugs and medicaments taken internally; T50.1X5A Adverse effect of loop [high-ceiling] diuretics, initial encounter; K29.70 Gastritis, unspecified, without bleeding; K20.9 Esophagitis, unspecified; D69.6 Thrombocytopenia, unspecified
CPT/HCPCS: 36415; 36430; 71045; 76705; 76937; 80048; 80053; 80202; 81001; 82550; 82553; 82728; 83036; 83540; 83605; 83880; 84484; 85025; 85610; 85730; 86704; 86706; 86803; 86850; 86900; 86901; 86920; 87081; 87086; 87340; 87400; 88305; 88312; 93005; 93306; 94664; 96374; C9113; J0171; J0692; J0696; J1200; J1650; J2405; J2916; J2930; J3370; J7030; J7040; P9016

== ENCOUNTER 2019-02-10 14:46 | Emergency (ER) | payer OTHER ==
[~2019-02-10] VITALS: Ht 172.7 cm; Wt 101.0 kg
[~2019-02-10 14:46] MED LIST: DIPH25CA42 PO; FAMO20TA18 PO; FOLI-49 PO
[2019-02-10 15:03] VITALS: Ht 172.7 cm; Wt 101.0 kg
--- NOTE | 2019-02-10 15:35 | ERD ---
ER Documentation Chief Complaint Chief Complaint DIZZINESS HPI The patient is a 48-year-old male, resenting to the ER because of dizziness for the last 3 to 4 hours prior to arrival, had similar symptoms previously, denies syncope, near syncope, seizure, neck pain, chest pain, dyspnea, abdominal pain, vomiting, dysuria, diarrhea. He does not smoke, drinks socially, denies illicit drug Medical history: Anemia, chronic bilateral lower extremity edema, gastritis, cirrhosis, pancytopenia Past surgical history: ACL surgery ROS All systems reviewed and are negative except as per history of present illness. Medications Home Meds Reported Medications Ferrous Sulfate* (Ferrous Sulfate*) 325 Mg Tabec, 325 MG PO DAILY, TAB 02/10/19 Folic Acid* (Folic Acid*) 1 Mg Tablet, 1 MG PO DAILY, TAB 11/28/18 Discontinued Reported Medications Famotidine* (Famotidine*) 20 Mg Tablet, 20 MG PO BID, #60 TAB 11/28/18 Diphenhydramine Hcl (Banophen) 25 Mg Capsule, 25 MG PO Q4H, CAP 11/28/18 Allergies Allergies: Coded Allergies: Penicillins (Verified Allergy, Intermediate, RASH, 02/10/19) PMhx/Soc History of Surgery: Yes (ACL repair 2016) Anesthesia Reaction: No Hx Neurological Disorder: No Hx Respiratory Disorders: No Hx Cardiac Disorders: No Hx Psychiatric Problems: No Hx Miscellaneous Medical Probl: No Hx Alcohol Use: Yes Hx Substance Use: No Hx Tobacco Use: No Physical Exam Vitals Vital Signs Date Temp Pulse Resp B/P (MAP) Pulse Ox O2 O2 Flow FiO2 Time Delivery Rate 02/10/19 98.3 78 16 112/80 98 Room Air 19:02 (91) 02/10/19 97.5 112 17 138/71 97 15:03 (93) Physical Exam Const: No acute distress. Head: Atraumatic. Eyes: Normal Conjunctiva. ENT: Normal External Ears, Nose and Mouth. Neck: Full range of motion. No meningismus. Resp: Clear to auscultation bilaterally. Cardio: Regular rate and rhythm. Abd: Soft, non distended, normal bowel sounds, non tender. Skin: No petechiae or rashes. Back: No midline or flank tenderness. Ext: Chronic bilateral lower extremity edema, no calf tenderness Neur: Awake and alert. No focal deficit Psych: Normal Mood and Affect. Result Diagram: 02/10/19 1600 02/10/19 1600 Results 24 hrs Laboratory Tests Test 02/10/19 16:00 White Blood Count 3.5 10^3/ul Red Blood Count 3.29 10^6/ul Hemoglobin 9.3 g/dl Hematocrit 29.2 % Mean Corpuscular Volume 88.8 fl Mean Corpuscular Hemoglobin 28.3 pg Mean Corpuscular Hemoglobin Concent 31.8 g/dl Red Cell Distribution Width 16.4 % Platelet Count 94 10^3/UL Mean Platelet Volume 10.4 fl Immature Granulocytes % 0.000 % Neutrophils % % Segmented Neutrophils % (Manual) 55 % Lymphocytes % % Lymphocytes % (Manual) 27 % Reactive Lymphocytes % (Manual) 4 % Monocytes % % Monocytes % (Manual) 3 % Eosinophils % % Eosinophils % (Manual) 9 % Basophils % % Basophils % (Manual) 2 % Nucleated Red Blood Cells % 0.0 /100WBC Immature Granulocytes # 0.000 10^3/ul Neutrophils # 10^3/ul Lymphocytes (Manual) 0.9 10^3/ul Lymphocytes # 10^3/ul Reactive Lymphocytes # 0.1 10^3/ul Monocytes # 10^3/ul Monocytes # (Manual) 0.1 10^3/ul Eosinophils # 10^3/ul Basophils # 10^3/ul Basophils # (Manual) 0.0 10^3/ul Nucleated Red Blood Cells # 10^3/ul Platelet Estimate DECREASED Giant Platelets 1 % Poikilocytosis 2+ Ovalocytes 2+ Prothrombin Time 18.1 Sec Prothrombin Time Ratio 1.4 INR International Normalized Ratio 1.49 Activated Partial Thromboplast Time 38.3 Sec Sodium Level 141 mmol/L Potassium Level 3.5 mmol/L Chloride Level 105 mmol/L Carbon Dioxide Level 23 mmol/L Anion Gap 13 Blood Urea Nitrogen 7 mg/dl Creatinine 0.86 mg/dl Est Glomerular Filtrat Rate mL/min > 60 mL/min Glucose Level 92 mg/dl Calcium Level 8.4 mg/dl Current Medications Medications Dose Sig/Carlos Start Time Status Last (Trade) Ordered Route PRN Stop Time Admin Dose Reason Admin Meclizine 25 mg ONCE ONCE 02/10/19 DC 02/10/19 HCl PO 16:00 16:26 (Antivert) 02/10/19 16:01 Procedures/[place] [id number] Radiology Main Line: [phone] DIAGNOSTIC IMAGING REPORT Patient: SWAPNIL SALVADOR : 1970 Age: 48 Sex: M MR #: [id number] DOS: 02/10/19 1542 Ordering MD: LESLIE STAUFFER MD Location: E/R Room/Bed: PROCEDURE: CT Brain without contrast. CLINICAL INDICATION: Headache. TECHNIQUE: A CT of the brain without contrast was performed utilizing axial sections from the skull base through the vertex. One or more the following does reduction techniques were utilized: Automated exposure control, adjustment of the mA/ or kV according to patient's size, or use of iterative reconstruction technique. Total exam CTDIvol is 39 MGy and DLP is 634 mGy-cm. DICOM images are available. COMPARISON: None available. FINDINGS: The ventricles and sulci are age-appropriate. There is no intracranial hemorrhage, mass effect or midline shift. No abnormal intra-axial or extra- axial fluid collections are seen. The holland/white matter differentiation is preserved. No acute skull abnormality is noted. The visualized paranasal sinuses demonstrate mild scattered mucosal thickening. The mastoid air cells are essentially clear. IMPRESSION: 1. No acute intracranial hemorrhage, transcortical infarction or mass effect. RPTAT: UU .Nevaeh Rhoades MD, MD Date Time Electronically viewed and signed by .Nevaeh Rhoades MD, MD on 02/10/2019 16:51 .N/ CC: LESLIE STAUFFER MD [id number] EKG: Read by emergency physician Rate/Rhythm: Normal Sinus Rhythm 95 beats/min QRS, ST, T-waves: No ST elevation, no T inversion, pvc, prolong QT Impression: Abnormal EKG MEDICAL MAKING DECISION: The patient is a 48-year-old male, presenting with acute dizziness of unclear etiology, was treated with Antivert 25 mg p.o. with good response, was able to eat well and ambulate well with any difficulty, is stable for outpatient follow-up The differential diagnoses considered include but are not limited to central causes such as cerebellar infarct, cerebellar hemorrhage, cerebellar tumor, acoustic neuroma, peripheral causes such as benign positional vertigo, labyrinthitis, medication, Meniere's disease. Departure Diagnosis: Primary Impression: Dizziness Additional Impression: Pancytopenia Condition: Good Comments I discussed the findings with the patient. I advised the patient to follow-up with the primary physician in about 1-2 days, sooner if needed and return if any concern. Disclaimer: Inadvertent spelling and grammatical errors are likely due to EHR/dictation software use and do not reflect on the overall quality of patient care. Also, please note that the electronic time recorded on this note does not necessarily reflect the actual time of the patient encounter. LESLIE STAUFFER MD Feb 10, 2019 15:35
[2019-02-10] MEDS ORDERED: MECLIZINE 12.5 MG TAB PO ONE (16:00)
[2019-02-10] MEDS ORDERED: FER325 PO (17:18)
[2019-02-10 19:02] VITALS: BP 112/80; PULSE 78; RESP 16
== END 2019-02-10 19:08 | disposition home or self-care (01) ==
LOC: E/R 14:46
DX: D61.818 Other pancytopenia (principal); R40.2142 Coma scale, eyes open, spontaneous, at arrival to emergency department; R40.2252 Coma scale, best verbal response, oriented, at arrival to emergency department; R40.2362 Coma scale, best motor response, obeys commands, at arrival to emergency department
CPT/HCPCS: 70450; 80048; 85025; 85610; 85730; 93005; Z7610

== ENCOUNTER 2019-02-26 19:43 | Emergency (ER) | payer OTHER ==
[~2019-02-26] VITALS: Ht 172.7 cm; Wt 102.9 kg
[~2019-02-26 19:43] MED LIST changes: -DIPH25CA42 PO; -FAMO20TA18 PO; +FER325 PO; +MULTI PO
[2019-02-26 19:49] VITALS: Ht 172.7 cm; Wt 102.9 kg
[2019-02-26] MEDS ORDERED: VANCOMYCIN 1 GM (PMX) 250 ML IVPB STA (20:00)
[2019-02-26] MEDS ORDERED: CEFTRIAXONE 1 GM/50 ML (PMX) 50 ML IVPB ONE (20:00)
[2019-02-26] MEDS ORDERED: SODIUM CHLORIDE 0.9% 1L BAG IV* STA (20:00)
[2019-02-26] MEDS: LORAZEPAM 2 MG INJ IV ONE ×2 (21:19→21:21)
[2019-02-26 23:30] VITALS: BP 111/84; PULSE 106; RESP 16
--- NOTE | 2019-03-01 12:20 | ERD ---
ER Documentation Chief Complaint Chief Complaint bib ra [id number] c/o swelling both lower legs, states "i'm dehydrated" HPI Encounter date: 02/26/2019 This is a 48-year-old homeless male presenting by ambulance after falling asleep in the sun. He is complaining of "dehydration" and swelling to bilateral lower extremities. Patient states that he is homeless and walks a lot, which is the reason his lower extremities have been swelling recently. Today he fell asleep in the sun and when he woke up, he felt very weak and dehydrated which is why he called ambulance. He does admit to being an alcoholic which is a recent problem for him as he was sober for many years. He is currently working with a psychologist social to help with his social situation. He denies any chest pain, shortness of breath, recent illness, cough, dysuria, hematuria, vomiting or diarrhea. No neck pain or stiffness. No significant headache. ROS All systems reviewed and are negative except as per history of present illness. Medications Home Meds Reported Medications Ferrous Sulfate* (Ferrous Sulfate*) 325 Mg Tabec, 325 MG PO DAILY, TAB 02/10/19 Folic Acid* (Folic Acid*) 1 Mg Tablet, 1 MG PO DAILY, TAB 11/28/18 Allergies Allergies: Coded Allergies: Penicillins (Verified Allergy, Intermediate, RASH, 02/26/19) PMhx/Soc History of Surgery: Yes (Right ACL repair 2015) Anesthesia Reaction: No Hx Neurological Disorder: No Hx Respiratory Disorders: No Hx Cardiac Disorders: Yes (HTN not on meds) Hx Psychiatric Problems: No Hx Miscellaneous Medical Probl: No Hx Alcohol Use: Yes (1 bottle everyday, last drink today) Hx Substance Use: No Hx Tobacco Use: No Smoking Status: Never smoker FmHx Family History: No diabetes Physical Exam Vitals Vital Signs Date Temp Pulse Resp B/P (MAP) Pulse Ox O2 O2 Flow FiO2 Time Delivery Rate 02/26/19 99.0 106 16 111/84 96 Room Air 23:30 (93) 02/26/19 103 27 114/83 95 Room Air 23:00 (93) 02/26/19 106 26 113/75 95 Room Air 22:30 (88) 02/26/19 104 22 126/84 95 Room Air 22:00 (98) 02/26/19 112 26 125/81 95 Room Air 21:30 (96) 02/26/19 102 25 127/80 97 Room Air 21:00 (96) 02/26/19 104 26 130/75 95 Room Air 20:36 (93) 02/26/19 101.6 119 20 144/64 100 19:49 (90) Physical Exam Const: No acute distress, appears fatigued but nontoxic Head: Atraumatic Eyes: Normal Conjunctiva, PERRLA, EOMI ENT: Normal External Ears, Nose and Mouth.dry mucous membranes. Neck: Full range of motion. No meningismus. Resp: Clear to auscultation bilaterally Cardio: Tachycardic with regular rhythm, no murmurs Abd: Soft, non tender, non distended. Normal bowel sounds Skin: No petechiae or rashes Back: No midline or flank tenderness Ext: No cyanosis, trace bilateral lower extremity edema with no evidence of cellulitis Neur: Awake and alert, oriented x3, normal speech, cranial nerves intact, strength and sensations intact in all 4 extremities Psych: Normal Mood and Affect Result Diagram: 02/26/19201102/26/192011 Results 24 hrs Laboratory Tests Test 02/26/19 20:12 02/26/19 20:16 02/26/19 22:11 White Blood Count 5.8 10^3/ul Red Blood Count 3.47 10^6/ul Hemoglobin 9.9 g/dl Hematocrit 30.8 % Mean Corpuscular Volume 88.8 fl Mean Corpuscular Hemoglobin 28.5 pg Mean Corpuscular 32.1 g/dl Hemoglobin Concent Red Cell Distribution Width 18.4 % Platelet Count 112 10^3/UL Mean Platelet Volume 11.2 fl Immature Granulocytes % 0.700 % Neutrophils % 79.7 % Lymphocytes % 8.1 % Monocytes % 10.1 % Eosinophils % 0.9 % Basophils % 0.5 % Nucleated Red Blood Cells % 0.0 /100WBC Immature Granulocytes # 0.040 10^3/ul Neutrophils # 4.6 10^3/ul Lymphocytes # 0.5 10^3/ul Monocytes # 0.6 10^3/ul Eosinophils # 0.1 10^3/ul Basophils # 0.0 10^3/ul Nucleated Red Blood Cells # 0.0 10^3/ul Prothrombin Time 17.4 Sec Prothrombin Time Ratio 1.4 INR International 1.41 Normalized Ratio Activated Partial Thromboplast 39.3 Sec Time Urine Color DICKSON Urine Clarity CLEAR Urine pH 8.0 Urine Specific [place] 1.015 Urine Ketones NEGATIVE mg/dL Urine Nitrite NEGATIVE mg/dL Urine Bilirubin NEGATIVE mg/dL Urine Urobilinogen 2+ mg/dL Urine Leukocyte Esterase NEGATIVE Alisa/ul Urine Microscopic RBC 28 /HPF Urine Microscopic WBC 1 /HPF Urine Bacteria FEW /HPF Urine Hemoglobin 2+ mg/dL Urine Glucose NEGATIVE mg/dL Urine Total Protein NEGATIVE mg/dl Sodium Level 139 mmol/L Potassium Level 3.5 mmol/L Chloride Level 106 mmol/L Carbon Dioxide Level 24 mmol/L Anion Gap 9 Blood Urea Nitrogen 5 mg/dl Creatinine 0.71 mg/dl Est Glomerular Filtrat > 60 mL/min Rate mL/min Glucose Level 131 mg/dl Calcium Level 8.5 mg/dl Total Bilirubin 1.4 mg/dl Direct Bilirubin 0.00 mg/dl Indirect Bilirubin 1.4 mg/dl Aspartate Amino Transf (AST/SGOT) 74 IU/L Alanine 31 IU/L Aminotransferase (ALT/SGPT) Alkaline Phosphatase 233 IU/L Troponin I < 0.012 ng/ml Total Protein 7.1 g/dl Albumin 3.3 g/dl Globulin 3.80 g/dl Albumin/Globulin Ratio 0.86 Lipase 89 U/L POC Venous Lactate 2.7 mmol/L Lactic Acid Level 2.1 mmol/L Current Medications Medications Dose Sig/Carlos Start Time Status Last (Trade) Ordered Route PRN Stop Time Admin Dose Reason Admin Sodium 2,050 ml BOLUS OVER 2 02/26/19 DC 02/26/19 Chloride HOURS STAT 20:00 20:38 (NS) IV* 02/26/19 20:01 Vancomycin 250 ml @ ONCE STAT 02/26/19 DC HCl 125 mls/hr IVPB 20:00 02/26/19 20:55 Ceftriaxone 50 ml @ ONCE ONCE 02/26/19 DC 02/26/19 Sodium 100 mls/hr IVPB 20:00 20:39 02/26/19 20:29 Lorazepam 1 mg ONCE ONCE 02/26/19 DC 02/26/19 (Ativan) IV 21:00 21:21 02/26/19 21:01 Procedures/[facility] EMERGENT LABS AND DIAGNOSTIC STUDIES: Lab Results above were reviewed and interpreted by me. CBC: Anemia, thrombocytopenia, chronic for the patient. CMP: Liver test abnormalities, consistent with likely liver disease from chronic alcoholism. No evidence of clinically significant electrolyte abnormality, acidosis, renal failure, hypoglycemia Lipase: no evidence of pancreatitis Troponin within normal limits, not indicative of cardiac ischemia Lactate elevated, most likely secondary to hypoperfusion and dehydration UA: no evidence of infection. Microscopic hematuria noted Coags notable for elevated INR, likely secondary to chronic liver disease from alcoholism 12-lead EKG was interpreted by Omid Hanson MD: Sinus tachycardia with ventricular rate of 107 beats per minute Normal axis Normal intervals No acute ST or T wave changes suggestive of acute ischemia or STEMI. Radiology Results as interpreted by Radiology below were reviewed by Armani Hanson MD: Chest x-ray shows no acute abnormalities Initial Nursing notes reviewed. Previous Medical Records requested via the Electronic Health Record. EMERGENCY DEPARTMENT COURSE / MEDICAL DECISION MAKING: Patient presented febrile and tachycardic after falling asleep under the sun. Initially sepsis work-up was initiated but I did not find any evidence of sepsis. There is no evidence of acute serious bacterial infection. I suspect the patient likely suffered heat exhaustion and his core body temperature was elevated for that reason. he was treated with IV fluids and cooling measures with improvement of his symptoms and vitals. He was also given Ativan he was having some signs of alcohol withdrawal. I have provided a medical screening exam and evaluation. Referral to outpatient behavioral health for follow up is not indicated. patient states that he is already working with a psychologist social and has plans to go into detox soon The patient is clinically stable for discharge. I have communicated after-visit instructions and plan to the patient. Because patient has been identified as without residence, the hospital policy and process for discharge requirements have been initiated by appropriate hospital staff. Patient's blood pressure was elevated (>120/80) but appears stable without evidence of hypertensive emergency or urgency. The patient was counseled about the risks of hypertension and urged to pursue outpatient monitoring and therapy within a week with their primary care physician. Critical Care Time: 45 minutes Treatments/Evaluations: Close monitoring and treatment of unstable vital signs, cardiorespiratory, and neurologic status, while maintaining tight balance of fluid, respiratory, and cardiac interventions. This time includes discussing the case with the patient and the patients family. This time does not include all procedures stated elsewhere in this record. This time also includes reviewing old records, labs and radiological studies. This time includes examining and re- examining the patient. Additionally, this time also includes arranging care with admitting and consulting physicians. Departure Diagnosis: Primary Impression: Heat exhaustion Encounter type: initial encounter Qualified Codes: T67.5XXA - Heat exhaustion, unspecified, initial encounter Additional Impressions: Dehydration Increased body temperature Thrombocytopenia Chronic anemia Condition: Stable Patient Instructions: Dehydration, Heat Exhaustion Referrals: [facility] YOU HAVE RECEIVED A MEDICAL SCREENING EXAM AND THE RESULTS INDICATE THAT YOU DO NOT HAVE A CONDITION THAT REQUIRES URGENT TREATMENT IN THE EMERGENCY DEPARTMENT. FURTHER EVALUATION AND TREATMENT OF YOUR CONDITION CAN WAIT UNTIL YOU ARE SEEN IN YOUR DOCTORS OFFICE WITHIN THE NEXT 1-2 DAYS. IT IS YOUR RESPONSIBILITY TO MAKE AN APPOINTMENT FOR FOLOW-UP CARE. IF YOU HAVE A PRIMARY DOCTOR --you should call your primary doctor and schedule an appointment IF YOU DO NOT HAVE A PRIMARY DOCTOR YOU CAN CALL OUR PHYSICIAN REFERRAL HOTLINE AT IF YOU CAN NOT AFFORD TO SEE A PHYSICIAN YOU CAN CHOSE FROM THE FOLLOWING [facility] [id number] [facility]. [facility] [address] [facility] [facility] [address] [facility] [facility] [address] [facility]. [facility] [address] [facility]. [facility]. [address] [place] Mar 01, 2019 12:20
== END 2019-02-26 23:46 | disposition home or self-care (01) ==
LOC: E/R 19:43
DX: T67.5XXA Heat exhaustion, unspecified, initial encounter (principal); I10 Essential (primary) hypertension; D69.6 Thrombocytopenia, unspecified; D64.9 Anemia, unspecified; R53.1 Weakness; R40.2142 Coma scale, eyes open, spontaneous, at arrival to emergency department; R40.2362 Coma scale, best motor response, obeys commands, at arrival to emergency department; R40.2252 Coma scale, best verbal response, oriented, at arrival to emergency department; Z59.0 Homelessness
CPT/HCPCS: 71045; 80053; 81001; 83605; 83690; 84484; 85025; 85610; 85730; 87040; 87086; 93005; 96365; 96375; J0696; J2060; J7030; Z7502

== ENCOUNTER 2019-03-14 16:24 | Inpatient (IN) | payer OTHER ==
[~2019-03-14] VITALS: Ht 172.7 cm; Wt 103.2 kg
[~2019-03-14 16:24] MED LIST changes: +FAMO-96 PO; +THIA100T56 PO
[2019-03-14] MEDS ORDERED: KETOROLAC 60 MG INJ IM STA (16:52)
[2019-03-14] MEDS ORDERED: SOD CHLORIDE 0.9% 1,000 ML IV STA (17:35)
[2019-03-14] MEDS ORDERED: SOD CHLORIDE 0.9% 1,000 ML IV ONE (20:00)
[2019-03-14] MEDS ORDERED: ONDANSETRON 4 MG INJ IV PRN (20:00)
[2019-03-14] MEDS ORDERED: ACETAMINOPHEN 325 MG TAB PO PRN (20:00)
[2019-03-14] MEDS ORDERED: morphine 4 MG/ML VIAL IV STA (20:06)
[2019-03-14] MEDS ORDERED: ONDANSETRON 4 MG INJ IV STA (20:06)
[2019-03-14 23:05] VITALS: BP 135/80; PULSE 95; RESP 20
[2019-03-14 23:12] VITALS: Ht 172.7 cm; Wt 103.2 kg
[2019-03-15] MEDS ORDERED: ALBUTEROL/IPRATROPIUM (NEB) 3 ML AMP HHN PRN (01:30)
[2019-03-15] MEDS ORDERED: NACL 0.9% 3 ML SYG IV SCH (01:30)
[2019-03-15] MEDS ORDERED: ONDANSETRON 4 MG INJ IV PRN (01:30)
[2019-03-15] MEDS: DEXTROSE 5%-0.45% NACL 1,000 ML IV SCH ×2 (01:43→09:37)
[2019-03-15 03:15] VITALS: BP 117/76; PULSE 89; RESP 18
[2019-03-15 07:23] VITALS: BP 118/74; PULSE 89; RESP 15
[2019-03-15] MEDS: morphine 2 MG INJ IV PRN ×2 (13:08→20:00)
[2019-03-15] MEDS: SOD CHLORIDE 0.9% 1,000 ML IV SCH ×2 (14:00→18:59)
[2019-03-15 14:14] VITALS: BP 119/63; PULSE 81; RESP 16
[2019-03-15 19:30] VITALS: BP 120/77; PULSE 80; RESP 16
[2019-03-16] MEDS: SOD CHLORIDE 0.9% 1,000 ML IV SCH
[2019-03-16] MEDS: DEXTROSE 5%-0.45% NACL 1,000 ML IV SCH ×4 (00:04→22:25)
[2019-03-16] MEDS: morphine 2 MG INJ IV PRN (00:05)
[2019-03-16 01:49] VITALS: BP 105/59; PULSE 82; RESP 18
[2019-03-16 07:24] VITALS: BP 102/62; PULSE 81; RESP 14
[2019-03-16 09:32] VITALS: BP 101/60; PULSE 87
[2019-03-16 09:33] VITALS: BP_SYST 117; BP_SYST 119; BP_DIAS 73; BP_DIAS 74; PULSE 90; PULSE 97
[2019-03-16 14:57] VITALS: BP 104/57; PULSE 80; RESP 14
[2019-03-16] MEDS: MULTIVITAMINS THERAPEUTIC TAB PO SCH (19:34)
[2019-03-16 19:57] VITALS: BP 113/59; PULSE 89; RESP 18
[2019-03-17 02:04] VITALS: BP 112/59; PULSE 82; RESP 18
[2019-03-17] MEDS: DEXTROSE 5%-0.45% NACL 1,000 ML IV SCH (06:27)
[2019-03-17 07:47] VITALS: BP 109/67; PULSE 99; RESP 18
[2019-03-17] MEDS: MULTIVITAMINS THERAPEUTIC TAB PO SCH (08:46)
== END 2019-03-17 14:00 | disposition home or self-care (01) | DRG 439 ==
LOC: FTE 16:24 → MS1 19:38
PROVIDERS: ADMIT Internal Medicine; ATTEND Internal Medicine
DX: K85.20 Alcohol induced acute pancreatitis without necrosis or infection (principal); D61.818 Other pancytopenia; F10.288 Alcohol dependence with other alcohol-induced disorder; K70.10 Alcoholic hepatitis without ascites; K70.30 Alcoholic cirrhosis of liver without ascites; I10 Essential (primary) hypertension; R16.1 Splenomegaly, not elsewhere classified; E66.9 Obesity, unspecified; Z68.34 Body mass index [BMI] 34.0-34.9, adult; Z88.0 Allergy status to penicillin; Z87.19 Personal history of other diseases of the digestive system
CPT/HCPCS: 36415; 74176; 76705; 76775; 80053; 81003; 82150; 82550; 83036; 83690; 83735; 84100; 85025; 85610; 87086; 93005; 96372; J1885; J2270; J2405; J7030; J7042

== ENCOUNTER 2019-04-01 07:00 | Emergency (ER) | payer OTHER ==
[~2019-04-01] VITALS: Ht 157.5 cm; Wt 90.0 kg
[~2019-04-01 07:00] MED LIST changes: -FER325 PO
[2019-04-01 07:04] VITALS: Ht 157.5 cm; Wt 90.0 kg
[2019-04-01] MEDS ORDERED: SOD CHLORIDE 0.9% 1,000 ML IV STA (07:48)
[2019-04-01] MEDS ORDERED: ONDANSETRON 4 MG INJ IV STA (07:48)
[2019-04-01] MEDS ORDERED: FAMOTIDINE 20 MG TAB PO STA (07:48)
[2019-04-01] MEDS ORDERED: THIAMINE 100 MG TAB PO ONE (08:00)
[2019-04-01] MEDS ORDERED: DICYCLOMINE 20 MG INJ IM ONE (08:00)
[2019-04-01] MEDS ORDERED: FOLIC ACID 1 MG TAB PO ONE (08:00)
[2019-04-01] MEDS ORDERED: DIAZEPAM 10 MG/2 ML SYG IV ONE (08:00)
[2019-04-01 10:02] VITALS: BP 132/89; PULSE 94; RESP 18
== END 2019-04-01 10:57 | disposition home or self-care (01) ==
LOC: E/R 07:00
DX: F10.10 Alcohol abuse, uncomplicated (principal); K29.20 Alcoholic gastritis without bleeding; E86.0 Dehydration; R40.2142 Coma scale, eyes open, spontaneous, at arrival to emergency department; R40.2252 Coma scale, best verbal response, oriented, at arrival to emergency department; R40.2362 Coma scale, best motor response, obeys commands, at arrival to emergency department
CPT/HCPCS: 36415; 80053; 83690; 85025; 96372; 96374; J0500; J2405; J7030; Z7502; Z7610